=== PATIENT | female | born 1935 | race Two or more races ===

== ENCOUNTER → 2018-06-21 | Day surgery (SDC) | payer MEDICARE ==
[2018-06-18 14:38] LABS: BASOPHILS # (AUTO) 0.1 (0.0-0.1); BASOPHILS % 0.8 % (0.0-1.0); EOSINOPHILS # (AUTO) 0.2 (0.0-0.4); EOSINOPHILS % 1.8 % (0.0-6.0); HEMATOCRIT 46.3 % (34.2-44.1); HEMOGLOBIN 14.9 g/dL (12.0-16.0); LYMPHOCYTES # (AUTO) 3.9 (1.0-3.2); LYMPHOCYTES % 43.7 % (18.0-39.1); MEAN CORPUSCULAR HEMOGLOBIN 27.9 pg (28-32); MEAN CORPUSCULAR HGB CONC 32.2 g/dL (31-35); MEAN CORPUSCULAR VOLUME 86.7 fL (81-99); MONOCYTES # (AUTO) 0.8 (0.2-0.8); MONOCYTES % 9.3 % (4.4-11.3); NEUTROPHILS # (AUTO) 3.9 (2.1-6.9); NEUTROPHILS % 44.2 % (38.7-80.0); PLATELET COUNT 135 x10e3/uL (140-360); RED BLOOD COUNT 5.34 x10e6/uL (3.6-5.1); RED CELL DISTRIBUTION WIDTH 15.2 % (11.7-14.4)
[~2018-06-21] MED LIST: ASPIR 8181 MG PO; GLUCAGON FOR INJ 1 MG VIAL ONE; GLYBURIDE5 MG PO; HYOSCYAMINE SULFATE 0.5 MG/ML INJ ONE; ISOSORBIDE MONO60 MG PO; LASIX20 MG PO; LISINOPRIL40 MG PO; LOVASTATIN20 MG PO; METFORMIN HCL500 MG PO; METOPROLOL SUCC50 MG PO; PANTOPRAZOLE SO40 MG PO; PERMETHRIN60 GM TOP; PROPOFOL IV EMULSION 10 MG/ML 50 ML VIAL ONE; STOOL SOFTENER100 MG PO; ULTRAM 50MG50 MG PO; VITAMIN D35000 UNIT PO
--- OUTSIDE RECORDS SUMMARY | 2018-06-21 08:41 | XMS REPORT ---
Author Author Joel Le Organization [employer] Address Unknown Phone Unavailable Care Team Providers Care Vending Machine Attendant Name Role Phone Joel Le CP Unavailable Allergies No Known Allergies Problems Problem Type Condition Code Onset Dates Condition Status Problem Gastro-esophageal reflux disease without esophagitis K21.9 Active Problem Body mass index (BMI) 29.0-29.9, adult Z68.29 Active Problem Atherosclerotic heart disease of [place] coronary artery without angina pectoris I25.10 Active Problem Upset stomach K30 Active Problem Osteoporosis M81.0 Active Problem Essential (primary) hypertension I10 Active Problem Abdominal gas pain R14.1 Active Problem 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 Problem 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 Active Problem Back pain M54.9 Active Problem Contact dermatitis and other eczema, due to unspecified cause L25.9 Active Problem 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 Problem 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
--- OUTSIDE RECORDS SUMMARY | 2018-06-21 08:41 | XMS REPORT ---
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 Active Problem Upset stomach K30 Active Problem 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 Problem Body mass index (BMI) 29.0-29.9, adult Z68.29 Active Problem Back pain M54.9 Active Problem Abdominal gas pain R14.1 Active Problem Hyperlipemia, mixed E78.2 Active Problem 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 Problem Contact dermatitis and other eczema, due to unspecified cause L25.9 Active Problem 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
--- OUTSIDE RECORDS SUMMARY | 2018-06-21 08:41 | XMS REPORT | Continuity of Care Document ---
Author Author [facility] Interface Address Unknown Phone Unavailable Problems Problem Status Onset Date Classification Date Reported Comments Source BILATERAL HIP PAIN Active 10/25/2017 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 Problem 01/24/2018 Joel Le Vitamin D deficiency Active Problem 01/24/2018 Joel Le Essential hypertension Active Problem 01/24/2018 Joel Le Arthropathy Active Problem 01/24/2018 Joel Le Moderate episode of recurrent major depressive disorder Active Problem 01/24/2018 Joel Le Back pain Active Problem 01/24/2018 Joel Le Upset stomach Active Problem 01/24/2018 Joel Le Osteoporosis Active Problem 01/24/2018 Joel Le Gout Active Problem 01/24/2018 Joel Le Hyperlipemia, mixed Active Problem 01/24/2018 Joel Le Contact dermatitis and other eczema, due to unspecified cause Active Problem 01/24/2018 Joel Le Anxiety disorder, unspecified Active Problem 01/24/2018 Joel Le 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 Active Problem 01/24/2018 Joel Le Type 2 diabetes mellitus with other diabetic kidney complication Active Problem 01/24/2018 Joel Le Gastro-esophageal reflux disease without esophagitis Active Problem 01/24/2018 Joel Le 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 Active Diagnosis 01/24/2018 Joel Le 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 Problem 01/24/2018 Joel Le Urinary tract infection, site not specified Active Diagnosis 12/20/2017 Joel Le Tinea cruris Active Diagnosis 12/06/2017 Joel Le Diabetes mellitus out of control Active Diagnosis 11/17/2016 Joel Le Fatigue Active Diagnosis 12/20/2017 Joel Le Neck muscle spasm Active Diagnosis 08/02/2017 Joel Le Primary insomnia Active Problem 01/24/2018 Joel Le Viral gastroenteritis Active Diagnosis 03/01/2017 Joel Le Type 2 diabetes mellitus with hyperglycemia Active Problem 01/24/2018 Joel Le Hypotensive episode Active Diagnosis 12/06/2017 Joel Le Fracture of unspecified part of neck of right femur, initial encounter for open fracture type IIIA, IIIB, or IIIC Active Diagnosis 12/06/2017 Joel Le Fracture of unspecified part of neck of left femur, initial encounter for open fracture type IIIA, IIIB, or IIIC Active Diagnosis 12/06/2017 Joel Le Status post fractures of both hips Active Diagnosis 01/24/2018 Joel Le Primary osteoarthritis involving multiple joints Active Diagnosis 01/24/2018 Joel Le Falling Active Diagnosis 01/24/2018 Joel Le Localized edema Active Diagnosis 01/24/2018 Joel Le Urinary tract infection Active Diagnosis 08/02/2017 Joel Le Abdominal pain, generalized Active Diagnosis 08/02/2017 Joel Le Hyponatremia Active Diagnosis 08/24/2017 Joel Le Major depression Active Problem 02/22/2016 Joel Le Age-related osteoporosis without current pathological fracture Active Problem 02/22/2016 Joel Le Eczema Active Problem 01/06/2016 Joel Le Encounter for general adult medical examination with abnormal findings Active Diagnosis 09/16/2015 Joel Le Other fatigue Active Diagnosis 01/06/2016 Joel Le Neck pain Active Diagnosis 01/27/2016 Joel Le Abdominal pain Active Diagnosis 01/27/2016 Joel Le Age-related bone loss Active Diagnosis 08/02/2016 Joel Le Croy hyp ht/kd I-IV w hf Active Diagnosis 08/02/2016 Joel Le Edema Active Diagnosis 01/06/2016 Joel Le Medications Medication Details Route Status Patient Instructions Ordering Provider Order Date Source Furosemide 1 tablet Orally Active 20 MG Orally Once a day Lock 01/04/2018 Joel Le Ecotrin Low Strength 1 tablet Orally Active 81 MG Orally Once a day Lock 12/11/2017 Joel Le Tresiba FlexTouch 20 UNITS Subcutaneous Active 100 UNIT/ML Subcutaneous daily Lock 12/09/2017 Joel Le Lisinopril 1 tablet Orally Active 20 MG Orally Once a day Lock 11/27/2017 Joel Le Basaglar KwikPen 20 UNITS Subcutaneous Active 100 UNIT/ML Subcutaneous daily Lock 11/20/2017 Joel Le Prolia as directed Subcutaneous Active 60 MG/ML Subcutaneous EVERY SIX MONTHS Lock 08/19/2017 Joel Le Clonazepam 1 tablet Orally Active 0.5 MG Orally qhs prn Lock 08/12/2017 Joel Le Baclofen 1 tablet with food or milk Orally Active 10 MG Orally Three times a day Lock 07/20/2017 Joel Le Diclofenac Sodium 40 drops to affected area Transdermal Active 1.5 % Transdermal Four times a day Lock 03/12/2017 Joel Le Lidocaine as directed Externally Active 4 % Externally daily Lock 03/12/2017 Joel Le Lidocaine 1 patch to skin remove after 12 hours Externally Active 5 % Externally Once a day Lock 03/12/2017 Joel Le Diclofenac Sodium 2 applications to affected area Transdermal Active 2 % Transdermal QID PRN ON AFFECTED JOINT Lock 03/12/2017 Joel Le Lidocaine 1 patch to skin remove after 12 hours Externally Active 5 % Externally Once a day Lock 03/12/2017 Joel Le Prolia as directed Subcutaneous Active 60 MG/ML Subcutaneous ONCE EVERY SIX MONTHS Lock 03/02/2017 Joel Le Prolia as directed Subcutaneous Active 60 MG/ML Subcutaneous ONCE EVERY SIX MONTHS Lock 02/25/2017 Joel Le Lomotil 1 tablet as needed Orally Active 2.5-0.025 MG Orally Four times a day Lock 02/23/2017 Joel Le Compazine 1 tablet Orally Active 10 MG Orally Three times a day Lock 02/23/2017 Joel Le Lomotil 1 tablet as needed Orally Active 2.5-0.025 MG Orally Four times a day Lock 02/23/2017 Joel Le Zofran ODT 1 tablet on the tongue and allow to dissolve Orally Active 4 MG Orally every 8 hrs Lock 11/19/2016 Joel Le Zofran ODT 1 tablet on the tongue and allow to dissolve Orally Active 4 MG Orally every 8 hrs Lock 11/19/2016 Joel Le Nystatin 1 application to affected area Externally Active 029500 UNIT/GM Externally Twice a day Lock 10/30/2016 Joel Le Metoprolol Succinate ER 1 1/2 tabs Orally Active 50 MG Orally Once a day Lock 10/30/2016 Joel Le Nystatin 1 application to affected area Externally Active 713529 UNIT/GM Externally Twice a day Lock 10/30/2016 Joel Le Metoprolol Succinate ER 1 1/2 tabs Orally Active 50 MG Orally Once a day Lock 10/30/2016 Joel Le Probiotic as directed Orally Active Orally Lock 08/08/2016 Joel Le Gas-X 1 tablet after meals and at bedtime as needed Orally Active 80 MG Orally Four times a day Lock 08/08/2016 Joel Le Gas-X 1 tablet after meals and at bedtime as needed Orally Active 80 MG Orally Four times a day Lock 08/08/2016 Joel Le Probiotic as directed Orally Active Orally Lock 08/08/2016 Joel Le Gas-X 1 tablet after meals and at bedtime as needed Orally Active 80 MG Orally Four times a day Lock 01/28/2016 Joel Le Probiotic as directed Orally Active Orally Lock 01/28/2016 Joel Le Amlodipine Besylate 1 tablet Orally Active 5 MG Orally Once a day Lock 12/21/2015 Joel Le Amlodipine Besylate 1 tablet Orally Active 5 MG Orally Once a day Lock 12/21/2015 Joel Le Gas-X 1 tablet after meals and at bedtime as needed Orally Active 80 MG Orally Four times a day Lock 11/15/2015 Joel Le Probiotic as directed Orally Active Orally Lock 11/15/2015 Joel Le Probiotic as directed Orally Active Orally Lock 11/15/2015 Joel Le Gas-X 1 tablet after meals and at bedtime as needed Orally Active 80 MG Orally Four times a day Lock 11/15/2015 Joel Le Protonix 1 tablet Orally Active 40 MG Orally Once a day Lock 11/15/2015 Joel Le Lidocaine 1 application to affected area as needed Externally Active 5 % Externally Three times a day Lock 09/08/2015 Joel Le Nizoral as directed Externally Active 2 % Externally Lock 09/08/2015 Joel Le Lidocaine 1 application to affected area as needed Externally Active 5 % Externally Three times a day Lock 09/08/2015 Joel Le Nizoral as directed Externally Active 2 % Externally Lock 09/08/2015 Joel Le Xyzal 1 tablet in the evening Orally Active 5 MG Orally Once a day Lock 09/08/2015 Joel Le Lexapro 1 tablet Orally Active 10 mg Orally Once a day Lock 06/25/2015 Joel Le Lexapro 1 tablet Orally Active 10 mg Orally Once a day Lock 06/25/2015 Joel Le Tizanidine HCl 1 tablet as needed Orally Active 4 MG Orally qhs prn Lock 11/22/2014 Joel Le Tizanidine HCl 1 tablet as needed Orally Active 4 MG Orally qhs prn Lock 11/22/2014 Joel Le Elocon 1 application to affected area Externally Active 0.1 % Externally Once a day Lock 09/11/2014 Joel Le Elocon 1 application to affected area Externally Active 0.1 % Externally Once a day Lock 09/11/2014 Joel Sharad Le Xyzal TAKE 1 TABLET BY MOUTH AT BEDTIME NEEDED PO Active 5 MG PO daily PRN Lock Joel Le Protonix TAKE 1 TABLET BY MOUTH EVERY MORNING PO Active 40 mg PO daily Lock Joel Le Lovastatin TAKE 1 TABLET BY MOUTH EVERY DAY NA Active 20 MG Rey Le Levemir INJECT 20 UNITS SUBCUTANEOUSLY EVERY DAY NA Active 100 UNIT/ML Lock Joel Sharad Lock D3-50 TAKE ONE CAPSULE BY MOUTH EVERY WEEK NA Active 02515 UNIT Lock Joel Sharad Le Meclizine HCl TAKE 1 TABLET BY MOUTH 3 TIMES A DAY NEEDED NA Active 12.5 MG Rey Le Furosemide TAKE 1 TABLET BY MOUTH EVERY MORNING NA Active 20 MG Rey Le OneTouch Delica Lancets 33G TEST 3 TIMES A DAY NA Active Lock Joel Sharad Le BD Insulin Syr Ultrafine II USE 1 DAILY WITH INSULIN NA Active 31G X 5/16" 0.5 ML Lock Joel Le Lisinopril TAKE 1 TABLET BY MOUTH EVERY MORNING NA Active 40 MG Rey Le Isosorbide Mononitrate CR TAKE 1 TABLET BY MOUTH DAILY NA Active 60 MG Rey Le Tramadol HCl TAKE 1 TABLET BY MOUTH TWICE A DAY WITH FOOD NA Active 50 MG Rey Le Glucophage XR TAKE 1 TABLET BY MOUTH TWICE A DAY NA Active 500 MG Rey Le Accu-Chek Softclix Lancets USE TO TEST BLOOD GLUCOSE THREE TIMES DAILY NA Active N/A Rey Joel Sharad Le True Metrix Blood Glucose Test USE TO TEST BLOOD GLUCOSE THREE TIMES DAILY NA Active N/A Rey [place] Lock Plavix TAKE 1 TABLET BY MOUTH EVERY DAY NA Active 75 MG Lock Joel Le Nitrostat PLACE ONE TABLET UNDER THE TONGUE DAILY NEEDED NA Active 0.4 MG Rey Le Lorazepam TAKE 1 TABLET BY MOUTH AT BEDTIME NEEDED NA Active 0.5 MG Rey Le Mupirocin APPLY TWICE DAILY NA Active 2 % Rey Le Metoprolol Succinate ER TAKE 1 TABLET BY MOUTH EVERY DAY NA Active 50 MG Lock Joel Le Norvasc TAKE 1 TABLET BY MOUTH EVERY DAY NA Active 5 MG Rey [place] Lock Plavix TAKE 1 TABLET BY MOUTH EVERY DAY NA Active 75 MG Rey Le Metoprolol Succinate ER 1 tab NA Active 50 mg Rey Le Baclofen TAKE 1 TABLET BY MOUTH 3 TIMES A DAY NEEDED. NA Active 10 MG Lock Joel C Lock Plavix TAKE 1 TABLET BY MOUTH EVERY DAY NA Active 75 MG Lock Joel C Lock Glucophage XR TAKE 1 TABLET BY MOUTH TWICE A DAY NA Active 500 MG Lock Joel C Lock Lisinopril TAKE 1 TABLET BY MOUTH EVERY MORNING NA Active 40 MG Lock Joel C Lock Isosorbide Mononitrate CR TAKE 1 TABLET BY MOUTH DAILY NA Active 60 MG Lock Joel C Lock Amlodipine Besylate TAKE HALF A TABLET BY MOUTH TWO TIMES DAILY NA Active 10 MG Lock Joel C Lock Metoprolol Succinate ER TAKE 1 TABLET BY MOUTH EVERY DAY NA Active 50 MG Lock Joel C Lock Lovastatin TAKE 1 TABLET BY MOUTH EVERY DAY NA Active 20 MG Lock Joel C Lock Omeprazole TAKE ONE CAPSULE BY MOUTH EVERY DAY NA Active 20 MG Lock Joel C Lock Lisinopril TAKE 1 TABLET BY MOUTH EVERY MORNING NA Active 40 MG Lock Joel C Lock Meloxicam TAKE 1 TABLET BY MOUTH DAILY NA Active 15 MG Lock Joel C Lock Omeprazole TAKE ONE CAPSULE BY MOUTH EVERY DAY NA No Longer Active 20 MG Lock Joel C Lock Amlodipine Besylate TAKE HALF A TABLET BY MOUTH TWO TIMES DAILY NA No Longer Active 10 MG Lock Joel C Lock Allergies, Adverse Reactions, Alerts Substance Category Reaction Severity Reaction type Status Date Reported Comments Source N.K.D.A. Adverse Reaction Info Not Available Adverse Reaction Active 01/04/2018 Joel C Lock Immunizations Immunization Date Given Site Status Last Updated Comments Source Results Order Name Results Value Reference Range Date Interpretation Comments Source Spine lumbar series DX Spine lumbar series DX EXAM: Spine lumbar series DX HISTORY: - M54.5 Low back pain;G89.29 Other chronic pain COMPARISON: None AP, lateral and oblique views of the lumbar spine. FINDINGS: There is slight retrolisthesis of L2 on L3 and L3 on L4. There is advanced disc space narrowing at L2-3 and moderate to severe disc space narrowing at L1 to and T12-L1. Vertebral body heights are maintained. There is moderate facet arthropathy at the lower lumbar spine. IMPRESSION: Significant degenerative change of the lumbar spine as described above. 02/11/2018 - - Read by: Susannah Adams MD Dictated Date/time: 02/11/18 16:13 Electronically Signed by: Susannah Adams MD 02/11/18 16:16 FINAL REPORT KASSANDRA Lomas Vital Signs Vital Sign Value Date Comments Source Weight 141 01/04/2018 Joel C Lock Height 60 01/04/2018 Joel C Lock Heart Rate 72 01/04/2018 Joel C Lock Diastolic (mm Hg) 85 01/04/2018 Joel C Lock Systolic (mm Hg) 140 01/04/2018 Joel C Lock Weight 143.0 12/11/2017 Joel C Lock Height 60 12/11/2017 Joel C Lock Heart Rate 80 12/11/2017 Joel C Lock Diastolic (mm Hg) 70 12/11/2017 Joel C Lock Systolic (mm Hg) 135 12/11/2017 Joel C Lock Weight 150 11/27/2017 Joel C Lock Height 60 11/27/2017 Joel C Lock Heart Rate 90 11/27/2017 Joel C Lock Diastolic (mm Hg) 60 11/27/2017 Joel C Lock Systolic (mm Hg) 110 11/27/2017 Joel C Lock Weight 148 09/03/2017 Joel C Lock Height 60 09/03/2017 Joel C Lock Heart Rate 68 09/03/2017 Joel C Lock Diastolic (mm Hg) 78 09/03/2017 Joel C Lock Systolic (mm Hg) 120 09/03/2017 Joel C Lock Weight 146.8 08/12/2017 Joel C Lock Height 60 08/12/2017 Joel C Lock Heart Rate 72 08/12/2017 Joel C Lock Diastolic (mm Hg) 80 08/12/2017 Joel C Lock Systolic (mm Hg) 120 08/12/2017 Joel C Lock Weight 148 07/28/2017 Joel C Lock Height 60 07/28/2017 Joel C Lock Heart Rate 60 07/28/2017 Joel C Lock Diastolic (mm Hg) 80 07/28/2017 Joel C Lock Systolic (mm Hg) 125 07/28/2017 Joel C Lock Weight 151 07/20/2017 Joel C Lock Height 60 07/20/2017 Joel C Lock Heart Rate 68 07/20/2017 Joel C Lock Diastolic (mm Hg) 70 07/20/2017 Jeol C Lock Systolic (mm Hg) 120 07/20/2017 Joel C Lock Weight 149.2 03/26/2017 Joel C Lock Height 60 03/26/2017 Joel C Lock Heart Rate 64 03/26/2017 Joel C Lock Diastolic (mm Hg) 80 03/26/2017 Joel C Lock Systolic (mm Hg) 132 03/26/2017 Joel C Lock Weight 150 02/23/2017 Joel C Lock Height 60 02/23/2017 Joel C Lock Heart Rate 68 02/23/2017 Joel C Lock Diastolic (mm Hg) 76 02/23/2017 Joel C Lock Systolic (mm Hg) 136 02/23/2017 Joel C Lock Weight 152 01/19/2017 Joel C Lock Height 60 01/19/2017 Joel C Lock Heart Rate 64 01/19/2017 Joel C Lock Diastolic (mm Hg) 80 01/19/2017 Joel C Lock Systolic (mm Hg) 130 01/19/2017 Joel C Lock Weight 149 11/19/2016 Joel C Lock Height 60 11/19/2016 Joel C Lock Heart Rate 68 11/19/2016 Joel C Lock Diastolic (mm Hg) 70 11/19/2016 Joel C Lock Systolic (mm Hg) 138 11/19/2016 Joel C Lock Weight 149.4 10/30/2016 Joel C Lock Height 60 10/30/2016 Joel C Lock Heart Rate 76 10/30/2016 Joel C Lock Diastolic (mm Hg) 90 10/30/2016 Joel C Lock Systolic (mm Hg) 150 10/30/2016 Joel C Lock Weight 146 08/08/2016 Joel C Lock Height 60 08/08/2016 Joel C Lock Heart Rate 60 08/08/2016 Joel C Lock Diastolic (mm Hg) 80 08/08/2016 Joel C Lock Systolic (mm Hg) 130 08/08/2016 Joel C Lock Weight 151 07/28/2016 Joel C Lock Height 60 07/28/2016 Joel C Lock Heart Rate 64 07/28/2016 Joel C Lock Diastolic (mm Hg) 75 07/28/2016 Joel C Lock Systolic (mm Hg) 130 07/28/2016 Joel C Lock Weight 148.8 01/28/2016 Joel C Lock Height 60 01/28/2016 Joel C Lock Heart Rate 64 01/28/2016 Joel C Lock Diastolic (mm Hg) 80 01/28/2016 Joel C Lock Systolic (mm Hg) 130 01/28/2016 Joel C Lock Weight 149 01/14/2016 Joel C Lock Height 60 01/14/2016 Joel C Lock Heart Rate 68 01/14/2016 Joel C Lock Diastolic (mm Hg) 70 01/14/2016 Joel C Lock Systolic (mm Hg) 120 01/14/2016 Joel C Lock Weight 155 12/21/2015 Joel C Lock Height 60 12/21/2015 Joel C Lock Heart Rate 72 12/21/2015 Joel C Lock Diastolic (mm Hg) 70 12/21/2015 Joel C Lock Systolic (mm Hg) 120 12/21/2015 Joel Le Weight 148 11/15/2015 Joel Le Height 60 11/15/2015 Joel Le Heart Rate 68 11/15/2015 Joel Le Diastolic (mm Hg) 65 11/15/2015 Joel Le Systolic (mm Hg) 110 11/15/2015 Joel Le Weight 149.6 09/06/2015 Joel Le Height 60 09/06/2015 Joel Le Heart Rate 72 09/06/2015 Joel Le Diastolic (mm Hg) 74 09/06/2015 Joel Le Systolic (mm Hg) 130 09/06/2015 Joel Le Encounters Location Location Details Encounter Type Encounter Number Reason For Visit Attending Provider ADM Date DC Date Status Source Joel Le MD Unknown [id number] 02/10/2014 02/10/2014 Joel eL MD Unknown [id number] 02/10/2014 02/10/2014 Joel Le MD Unknown [id number] 02/10/2014 02/10/2014 Joel Le MD Unknown [id number] 02/10/2014 02/10/2014 Joel Le MD Unknown [id number] 02/10/2014 02/10/2014 Joel Le MD Unknown [id number] 02/10/2014 02/10/2014 Joel Le MD Unknown [id number] 02/10/2014 02/10/2014 Joel Le MD Unknown [id number] 02/10/2014 02/10/2014 Joel Le MD Unknown [id number] 02/10/2014 02/10/2014 Joel Le MD Unknown [id number] 02/10/2014 02/10/2014 Joel Le MD Unknown [id number] 02/21/2014 02/21/2014 Joel Le MD Unknown [id number] 02/21/2014 02/21/2014 Joel Le MD Unknown [id number] 02/21/2014 02/21/2014 Joel Le MD Unknown [id number] 02/21/2014 02/21/2014 Joel Le MD Unknown [id number] 02/21/2014 02/21/2014 Joel Le MD Unknown [id number] 02/21/2014 02/21/2014 Joel Le MD Unknown [id number] 02/21/2014 02/21/2014 Joel Le MD Unknown [id number] 02/21/2014 02/21/2014 Joel Le MD Unknown [id number] 02/21/2014 02/21/2014 Joel Le MD Unknown [id number] 02/21/2014 02/21/2014 Joel Le MD CHECK UP [id number] 06/26/2014 06/26/2014 Joel Le MD CHECK UP [id number] 06/26/2014 06/26/2014 Joel Le MD CHECK UP [id number] 06/26/2014 06/26/2014 Joel Le MD CHECK UP [id number] 06/26/2014 06/26/2014 Joel Le MD CHECK UP [id number] 06/26/2014 06/26/2014 Joel Le MD CHECK UP [id number] 06/26/2014 06/26/2014 Joel Le MD CHECK UP [id number] 06/26/2014 06/26/2014 Joel Le MD CHECK UP [id number] 06/26/2014 06/26/2014 Joel Le MD CHECK UP [id number] 06/26/2014 06/26/2014 Joel Le MD CHECK UP [id number] 06/26/2014 06/26/2014 Joel Le MD Unknown [id number] 09/11/2014 09/11/2014 Joel Le MD Unknown [id number] 09/11/2014 09/11/2014 Joel Le MD Unknown [id number] 09/11/2014 09/11/2014 Joel Le MD Unknown [id number] 09/11/2014 09/11/2014 Joel Le MD Unknown [id number] 09/11/2014 09/11/2014 Joel Le MD Unknown [id number] 09/11/2014 09/11/2014 Joel Le MD Unknown [id number] 09/11/2014 09/11/2014 Joel Le MD Unknown [id number] 09/11/2014 09/11/2014 Joel Le MD Unknown [id number] 09/11/2014 09/11/2014 Joel Le MD Unknown [id number] 09/11/2014 09/11/2014 Joel Le MD Unknown [id number] 11/21/2014 11/21/2014 Joel Le MD Unknown [id number] 11/21/2014 11/21/2014 Joel Le MD Unknown [id number] 11/21/2014 11/21/2014 Joel Le MD Unknown [id number] 11/21/2014 11/21/2014 Joel Le MD Unknown [id number] 11/21/2014 11/21/2014 Joel Le MD Unknown [id number] 11/21/2014 11/21/2014 Joel Le MD Unknown [id number] 11/21/2014 11/21/2014 Joel Le MD Unknown [id number] 11/21/2014 11/21/2014 Joel Le MD Unknown [id number] 11/21/2014 11/21/2014 Joel Le MD Unknown [id number] 11/21/2014 11/21/2014 Joel Le MD Unknown [id number] 05/25/2015 05/25/2015 Joel Le MD Unknown [id number] 05/25/2015 05/25/2015 Joel Le MD Unknown [id number] 05/25/2015 05/25/2015 Joel Le MD Unknown [id number] 05/25/2015 05/25/2015 Joel Le MD Unknown [id number] 05/25/2015 05/25/2015 Joel Le MD Unknown [id number] 05/25/2015 05/25/2015 Joel Le MD Unknown [id number] 05/25/2015 05/25/2015 Joel Le MD Unknown [id number] 05/25/2015 05/25/2015 Joel Le MD Unknown [id number] 05/25/2015 05/25/2015 Joel Le MD Unknown [id number] 05/25/2015 05/25/2015 Joel Le MD Unknown [id number] 06/25/2015 06/25/2015 Joel Le MD Unknown [id number] 06/25/2015 06/25/2015 Joel Le MD Unknown [id number] 06/25/2015 06/25/2015 Joel Le MD Unknown [id number] 06/25/2015 06/25/2015 Joel Le MD Unknown [id number] 06/25/2015 06/25/2015 Joel Le MD Unknown [id number] 06/25/2015 06/25/2015 Joel Le MD Unknown [id number] 06/25/2015 06/25/2015 Joel Le MD Unknown [id number] 06/25/2015 06/25/2015 Joel Le MD Unknown [id number] 06/25/2015 06/25/2015 Joel Le MD Unknown [id number] 06/25/2015 06/25/2015 Joel Le MD Unknown [id number] 09/06/2015 09/06/2015 Joel Le MD Unknown [id number] 09/06/2015 09/06/2015 Joel Le MD Unknown [id number] 09/06/2015 09/06/2015 Joel Le MD Unknown [id number] 09/06/2015 09/06/2015 Joel Le MD Unknown [id number] 09/06/2015 09/06/2015 Joel Le MD Unknown [id number] 09/06/2015 09/06/2015 Joel Le MD Unknown [id number] 09/06/2015 09/06/2015 Joel Le MD Unknown [id number] 09/06/2015 09/06/2015 Joel Le MD Unknown [id number] 09/06/2015 09/06/2015 Joel Le MD Unknown [id number] 09/11/2015 09/11/2015 Joel Le MD Unknown [id number] 09/11/2015 09/11/2015 Joel Le MD Unknown [id number] 09/11/2015 09/11/2015 Joel Le MD Unknown [id number] 09/11/2015 09/11/2015 Joel Le MD Unknown [id number] 09/11/2015 09/11/2015 Joel Le MD Unknown [id number] 09/11/2015 09/11/2015 Joel Le MD Unknown [id number] 09/11/2015 09/11/2015 Joel Le MD Unknown [id number] 09/11/2015 09/11/2015 Joel Le MD Unknown [id number] 09/11/2015 09/11/2015 Joel Le MD Unknown [id number] 09/11/2015 09/11/2015 Joel Le MD Unknown [id number] 11/15/2015 11/15/2015 Joel eL MD Unknown [id number] 11/15/2015 11/15/2015 Joel Le MD Unknown [id number] 11/15/2015 11/15/2015 Joel Le MD Unknown [id number] 11/15/2015 11/15/2015 Joel Le MD Unknown [id number] 11/15/2015 11/15/2015 Joel Le MD Unknown [id number] 11/15/2015 11/15/2015 Joel Le MD Unknown [id number] 11/15/2015 11/15/2015 Joel Le MD Unknown [id number] 11/15/2015 11/15/2015 Joel Le MD Unknown [id number] 12/21/2015 12/21/2015 Joel Le MD Unknown [id number] 12/21/2015 12/21/2015 Joel Le MD Unknown [id number] 12/21/2015 12/21/2015 Joel Le MD Unknown [id number] 12/21/2015 12/21/2015 Joel Le MD Unknown [id number] 12/21/2015 12/21/2015 Joel Le MD Unknown [id number] 12/21/2015 12/21/2015 Joel Le MD Unknown [id number] 12/21/2015 12/21/2015 Joel Le MD FUP 1 WEEK [id number] 01/14/2016 01/14/2016 Joel Le MD FUP 1 WEEK [id number] 01/14/2016 01/14/2016 Joel Le MD FUP 1 WEEK [id number] 01/14/2016 01/14/2016 Joel Le MD FUP 1 WEEK [id number] 01/14/2016 01/14/2016 Joel Le MD FUP 1 WEEK [id number] 01/14/2016 01/14/2016 Joel Le MD FUP 1 WEEK [id number] 01/14/2016 01/14/2016 Joel Le MD Follow-Up [id number] 01/28/2016 01/28/2016 Joel Le MD Follow-Up [id number] 01/28/2016 01/28/2016 Joel Le MD Follow-Up [id number] 01/28/2016 01/28/2016 Joel Le MD Follow-Up [id number] 01/28/2016 01/28/2016 Joel Le MD Follow-Up [id number] 01/28/2016 01/28/2016 Joel Le MD rx [id number] 02/21/2016 02/21/2016 Joel Le MD rx [id number] 02/21/2016 02/21/2016 Joel Le MD rx [id number] 02/21/2016 02/21/2016 Joel Le MD rx [id number] 02/21/2016 02/21/2016 Joel Le MD Unknown [id number] 07/28/2016 07/28/2016 Joel Le MD Unknown [id number] 07/28/2016 07/28/2016 Joel Le MD Unknown [id number] 07/28/2016 07/28/2016 Joel Le MD Unknown [id number] 08/08/2016 08/08/2016 Joel Le MD Test results [id number] 08/11/2016 08/11/2016 Joel Le MD Test results [id number] 08/11/2016 08/11/2016 Joel Le Procedures Procedure Code Date Perfomer Comments Source
--- OUTSIDE RECORDS SUMMARY | 2018-06-21 08:42 | XMS REPORT ---
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 Problem Vitamin D deficiency E55.9 Active Problem Essential (primary) hypertension I10 Active Problem Arthropathy M12.9 Active Problem 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 Active Problem Back pain M54.9 Active Problem Upset stomach K30 Active Problem Osteoporosis M81.0 Active Problem Gout M10.9 Active Problem Hyperlipemia, mixed E78.2 Active Problem Contact dermatitis and other eczema, due to unspecified cause L25.9 Active Problem Anxiety disorder, unspecified F41.9 Active Problem 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 [address]-35 60 MG/ML Subcutaneous ONCE EVERY SIX MONTHS Mar 02, 2017 Mar 06, 2017 Active as directed Results No Known Results Summary Purpose eClinicalWorks Submission
--- OUTSIDE RECORDS SUMMARY | 2018-06-21 08:42 | XMS REPORT ---
Author Author Joel Le Organization [employer] Address Unknown Phone Unavailable Care Team Providers Care Bread Wrapper Operator Name Role Phone Joel Le CP Unavailable Allergies, Adverse Reactions, Alerts Substance Reaction Event Type N.K.D.A. Info Not Available Non Drug Allergy Problems Problem Type Condition Code Onset Dates Condition Status Problem Gastro-esophageal reflux disease without esophagitis K21.9 Active Problem Body mass index (BMI) 29.0-29.9, adult Z68.29 Active Problem Atherosclerotic heart disease of [place] coronary artery without angina pectoris I25.10 Active Problem Upset stomach K30 Active Assessment Urinary tract infection, site not specified N39.0 Active Problem Osteoporosis M81.0 Active Assessment Tinea cruris B35.6 Active Problem Essential (primary) hypertension I10 Active Problem Abdominal gas pain R14.1 Active Problem 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 Problem 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 Active Problem Back pain M54.9 Active Assessment Essential (primary) hypertension I10 Active Problem Contact dermatitis and other eczema, due to unspecified cause L25.9 Active Assessment Diabetes mellitus out of control E11.65 Active Assessment Fatigue R53.83 Active Problem 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 Glucophage XR ND 73877644139 500 MG Active TAKE 1 TABLET BY MOUTH TWICE A DAY Furosemide ND 71562257917 20 MG Active TAKE 1 TABLET BY MOUTH EVERY MORNING Probiotic [facility] [address] Orally Aug 08, 2016 Active as directed Lovastatin [facility] 69157329932 20 MG Active TAKE 1 TABLET BY MOUTH EVERY DAY Protonix [facility] 43159296864 40 MG Active TAKE 1 TABLET BY MOUTH EVERY MORNING Gas-X [facility] [address]-65 80 MG Orally Four times a day November 15, 2015 Active 1 tablet after meals and at bedtime as needed Nizoral [facility] [address]-66 2 % Externally September 08, 2015 Active as directed Nitrostat [facility] 35713880575 0.[address] ONE TABLET UNDER THE TONGUE DAILY NEEDED Accu-Chek Softclix Lancets [facility] 90005203607 N/A Active USE TO TEST BLOOD GLUCOSE THREE TIMES DAILY True Metrix Blood Glucose Test [facility] 58865205472 N/A Active USE TO TEST BLOOD GLUCOSE THREE TIMES DAILY D3-50 [facility] 01474249250 41346 UNIT Active TAKE 1 CAPSULE BY MOUTH EVERY WEEK BD Insulin Syr Ultrafine II [facility] 83908121430 31G X 5/16" 0.5 ML Active USE 1 DAILY WITH INSULIN Elocon [facility] [address]-47 0.1 % Externally Once a day September 11, 2014 Active 1 application to affected area Levemir [facility] 28200084280 100 UNIT/ML Active INJECT 20 UNITS SUBCUTANEOUSLY EVERY DAY Probiotic [facility] [address] Orally November 15, 2015 Active as directed Mupirocin [facility] 41679979289 2 % Active APPLY TWICE DAILY Metoprolol Succinate ER [facility] 15097803638 50 MG Inactive TAKE 1 TABLET BY MOUTH EVERY DAY Lisinopril [facility] 73582391444 40 MG Active TAKE 1 TABLET BY MOUTH EVERY MORNING Lidocaine [facility] [address]-48 5 % Externally Three times a day September 08, 2015 Active 1 application to affected area as needed Tizanidine HCl [facility] [address]-98 4 mg Orally qhs prn November 22, 2014 Active 1 tablet as needed Meclizine HCl [facility] 37477722846 12.5 MG Active TAKE 1 TABLET BY MOUTH 3 TIMES A DAY NEEDED OneTouch Delica Lancets 33G [facility] 54932905512 Active TEST 3 TIMES A DAY Nystatin [facility] [address]-63 287604 UNIT/GM Externally Twice a day October 30, 2016 Active 1 application to affected area Plavix [facility] 39270497412 75 MG Active TAKE 1 TABLET BY MOUTH EVERY DAY Metoprolol Succinate ER [facility] [address]-26 50 MG Orally Once a day October 30, 2016 Active 1 1/2 tabs Gas-X [facility] [address]-23 80 MG Orally Four times a day Aug 08, 2016 Active 1 tablet after meals and at bedtime as needed Lorazepam [facility] 17342568227 0.5 MG Active TAKE 1 TABLET BY MOUTH AT BEDTIME NEEDED Isosorbide Mononitrate CR [facility] 27775480993 60 MG Active TAKE 1 TABLET BY MOUTH DAILY Lexapro [facility] [address]-58 10 mg Orally Once a day Jun 25, 2015 Active 1 tablet Vital Signs Date/Time: October 30, 2016 BMI 29.17 Index Weight 149.4 lbs Height 60 in Cardiac Monitoring Heart Rate 76 /min Blood Pressure Diastolic 90 mm Hg Blood Pressure Systolic 150 mm Hg Results Name Result Date Reference Range Unit Abnormality Flag CBC (H/H, RBC, INDICES, WBC, PLT) ----MPV 10.9 33276430 7.5-12.5 fL N ----HEMOGLOBIN 13.7 53296041 11.7-15.5 g/dL N ----HEMATOCRIT 41.6 07186872 35.0-45.0 % N ----MCV 81.2 62401494 80.0-100.0 fL N ----MCH 26.7 71099847 27.0-33.0 pg L ----MCHC 32.9 60625668 32.0-36.0 g/dL N ----RDW 16.5 86155366 11.0-15.0 % H ----PLATELET COUNT 151 77284414 140-400 Thousand/uL N ----WHITE BLOOD CELL COUNT 5.4 99642043 3.8-10.8 Thousand/uL N ----RED BLOOD CELL COUNT 5.12 14907296 3.80-5.10 Million/uL H COMPREHENSIVE METABOLIC PANEL ----GLOBULIN 3.2 54005800 1.9-3.7 g/dL (calc) N ----eGFR 70 20161030 > OR=60 mL/min/1.73m2 N ----eGFR NON-AFR. [place] 60 20161030 > OR=60 mL/min/1.73m2 N ----ALBUMIN 4.3 20161030 3.6-5.1 g/dL N ----SODIUM 134 37401665 135-146 mmol/L L ----PROTEIN, TOTAL 7.5 17384532 6.1-8.1 g/dL N ----BUN/CREATININE RATIO 18 20161030 6-22 (calc) N ----CALCIUM 9.0 20161030 8.6-10.4 mg/dL N ----AST 19 20161030 10-35 U/L N ----GLUCOSE 91 20161030 65-99 mg/dL N ----ALKALINE PHOSPHATASE 80 20161030 33-130 U/L N ----BILIRUBIN, TOTAL 0.4 20161030 0.2-1.2 mg/dL N ----CREATININE 0.89 86312429 0.60-0.88 mg/dL H ----ALBUMIN/GLOBULIN RATIO 1.3 20161030 1.0-2.5 (calc) N ----UREA NITROGEN (BUN) 16 20161030 7-25 mg/dL N ----CARBON DIOXIDE 28 20161030 20-31 mmol/L N ----ALT 17 20161030 6-29 U/L N ----POTASSIUM 4.7 46134589 3.5-5.3 mmol/L N ----CHLORIDE 98 07862456 98-110 mmol/L N URINALYSIS, COMPLETE W/REFLEX TO CULTURE ----BACTERIA NONE SEEN 20161030 NONE SEEN /HPF N ----SQUAMOUS EPITHELIAL CELLS NONE SEEN 20161030 < OR=5 /HPF N ----REFLEXIVE URINE CULTURE NO CULTURE INDICATED 20161030 ----HYALINE CAST NONE SEEN 20161030 NONE SEEN /LPF N ----PROTEIN NEGATIVE 68034659 NEGATIVE N ----OCCULT BLOOD NEGATIVE 32446614 NEGATIVE N ----KETONES NEGATIVE 57672221 NEGATIVE N ----BILIRUBIN NEGATIVE 55514339 NEGATIVE N ----GLUCOSE NEGATIVE 20161030 NEGATIVE N ----LEUKOCYTE ESTERASE NEGATIVE 69634934 NEGATIVE N ----NITRITE NEGATIVE 84562097 NEGATIVE N ----RBC NONE SEEN 20161030 < OR=2 /HPF N ----WBC NONE SEEN 20161030 < OR=5 /HPF N ----COLOR YELLOW 20161030 YELLOW N ----APPEARANCE CLEAR 20161030 CLEAR N ----SPECIFIC GRAVITY 1.010 20161030 1.001-1.035 N ----PH 7.0 20161030 5.0-8.0 N TSH ----TSH 1.22 20161030 0.40-4.50 mIU/L N HEMOGLOBIN A1c ----HEMOGLOBIN A1c 6.0 20161030 <5.7 % of total Hgb H Summary Purpose eClinicalWorks Submission
--- OUTSIDE RECORDS SUMMARY | 2018-06-21 08:42 | XMS REPORT ---
Author Author Joel Le Organization [employer] Address Unknown Phone Unavailable Care Team Providers Care Decorating Instructor Name Role Phone Joel Le CP Unavailable Allergies, Adverse Reactions, Alerts Substance Reaction Event Type N.K.D.A. 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 Problem Vitamin D deficiency E55.9 Active Assessment Arthropathy M12.9 Active Problem Essential (primary) hypertension I10 Active Assessment Vitamin D deficiency E55.9 Active Problem Arthropathy M12.9 Active Problem 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 Active Problem Back pain M54.9 Active Problem Upset stomach K30 Active Problem Osteoporosis M81.0 Active Problem Gout M10.9 Active Problem Hyperlipemia, mixed E78.2 Active Assessment 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 [address]-00 0.1 % Externally Once a day September 11, 2014 Active 1 application to affected area Nystatin [facility] [address]-91 147877 UNIT/GM Externally Twice a day October 30, 2016 Active 1 application to affected area Norvasc [facility] 68197053381 5 MG Active TAKE 1 TABLET BY MOUTH EVERY DAY Protonix [facility] 51339394901 40 MG Active TAKE 1 TABLET BY MOUTH EVERY MORNING OneToellen Reina Lancets 33G [facility] 42547778205 Active TEST 3 TIMES A DAY Lexapro [facility] [address]-73 10 mg Orally Once a day Jun 25, 2015 Active 1 tablet Probiotic [facility] [address] Orally Aug 08, 2016 Active as directed Mupirocin [facility] 60883971712 2 % Active APPLY TWICE DAILY Plavix [facility] 43862132714 75 MG Active TAKE 1 TABLET BY MOUTH EVERY DAY Furosemide [facility] 07419300343 20 MG Active TAKE 1 TABLET BY MOUTH EVERY MORNING Isosorbide Mononitrate CR [facility] 41298752011 60 MG Active TAKE 1 TABLET BY MOUTH DAILY Nitrostat [facility] 39087653759 0.[address] ONE TABLET UNDER THE TONGUE DAILY NEEDED Lorazepam [facility] 39780136359 0.5 MG Active TAKE 1 TABLET BY MOUTH AT BEDTIME NEEDED Accu-Chek Softclix Lancets [facility] 85337735595 N/A Active USE TO TEST BLOOD GLUCOSE THREE TIMES DAILY Lidocaine [facility] [address]-09 5 % Externally Three times a day September 08, 2015 Active 1 application to affected area as needed Metoprolol Succinate ER [facility] [address]-79 50 MG Orally Once a day October 30, 2016 Active 1 1/2 tabs Meclizine HCl [facility] 16257549609 12.5 MG Active TAKE 1 TABLET BY MOUTH 3 TIMES A DAY NEEDED BD Insulin Syr Ultrafine II [facility] 11247513993 31G X 5/16" 0.5 ML Active USE 1 DAILY WITH INSULIN True Metrix Blood Glucose Test [facility] 99830575966 N/A Active USE TO TEST BLOOD GLUCOSE THREE TIMES DAILY Gas-X [facility] [address]-51 80 MG Orally Four times a day Aug 08, 2016 Active 1 tablet after meals and at bedtime as needed Glucophage XR [facility] 27561341712 500 MG Active TAKE 1 TABLET BY MOUTH TWICE A DAY Zofran ODT [facility] [address]-16 4 MG Orally every 8 hrs November 19, 2016 Active 1 tablet on the tongue and allow to dissolve Lovastatin [facility] 22365539852 20 MG Active TAKE 1 TABLET BY MOUTH EVERY DAY Lisinopril [facility] 08624288638 40 MG Active TAKE 1 TABLET BY MOUTH EVERY MORNING Gas-X [facility] [address]-56 80 MG Orally Four times a day November 15, 2015 Active 1 tablet after meals and at bedtime as needed Levemir [facility] 65050144212 100 UNIT/ML Active INJECT 20 UNITS SUBCUTANEOUSLY EVERY DAY Tizanidine HCl [facility] [address]-39 4 mg Orally qhs prn November 22, 2014 Active 1 tablet as needed D3-[address] [facility] 72709568002 44644 UNIT Active TAKE 1 CAPSULE BY MOUTH EVERY WEEK Tramadol HCl [facility] 68307142527 50 MG Active TAKE 1 TABLET BY MOUTH TWICE A DAY WITH FOOD NEEDED. Probiotic [facility] [address] Orally November 15, 2015 Active as directed Nizoral [facility] [address]-78 2 % Externally September 08, 2015 Active as directed Amlodipine Besylate [facility] [address]-82 5 MG Orally Once a day December 21, 2015 Active 1 tablet Vital Signs Date/Time: Jan 19, 2017 BMI 29.68 Index Weight 152 lbs Height 60 in Cardiac Monitoring Heart Rate 64 /min Blood Pressure Diastolic 80 mm Hg Blood Pressure Systolic 130 mm Hg Results No Known Results Summary Purpose eClinicalWorks Submission
--- OUTSIDE RECORDS SUMMARY | 2018-06-21 08:42 | XMS REPORT ---
Author Author Joel Le Organization e[employer] Address Unknown Phone Unavailable Care Team Providers Care Deputy Sheriff Building Guard Name Role Phone Joel Le CP Unavailable [...] I12.9 Active Problem Atherosclerotic heart disease of [place] coronary artery without angina pectoris I25.10 Active Medications Medication Code System Code Instructions Start Date End Date Status Dosage Diclofenac Sodium [facility] [address]-15 2 % Transdermal QID PRN ON AFFECTED JOINT Mar 12, 2017 Jul 10, 2017 Active 2 applications to affected area Lidocaine [facility] [address]-51 4 % Externally daily Mar 12, 2017 Active as directed Results No Known Results Summary Purpose eClinicalWorks Submission
--- OUTSIDE RECORDS SUMMARY | 2018-06-21 08:42 | XMS REPORT ---
Author Author Joel Le Organization e[employer] Address Unknown Phone Unavailable Care Team Providers Care Dynamite Shooter Name Role Phone Joel Le CP Unavailable [...] I12.9 Active Problem Atherosclerotic heart disease of [place] coronary artery without angina pectoris I25.10 Active Medications Medication Code System Code Instructions Start Date End Date Status Dosage Diclofenac Sodium [facility] [address]-35 1.5 % Transdermal Four times a day Mar 12, 2017 Jul 10, 2017 Active 40 [place] [address]-63 4 % Externally daily Mar 12, 2017 In[place] [address]-04 5 % Externally Once a day Mar 12, 2017 Active 1 patch to skin remove after 12 [place] [address]-17 2 % Transdermal QID PRN ON AFFECTED JOINT Mar 12, 2017 Jul 10, 2017 Inactive 2 applications to affected area Results No Known Results Summary Purpose eClinicalWorks Submission
--- OUTSIDE RECORDS SUMMARY | 2018-06-21 08:42 | XMS REPORT ---
Author Author Joel Le Organization [employer] Address Unknown Phone Unavailable Care Team Providers Care Surety Bond Agent Name Role Phone Joel Le CP Unavailable [...] Active Problem Hyperlipemia, mixed E78.2 Active Assessment Osteoporosis M81.0 Active Problem Contact dermatitis and other eczema, [...] I12.9 Active Problem Atherosclerotic heart disease of [place] coronary artery without angina pectoris I25.10 Active Medications Medication Code System Code Instructions Start Date End Date Status Dosage Zofran ODT [facility] [address]-46 4 MG Orally every 8 hrs November 19, 2016 Active 1 tablet on the tongue and allow to dissolve Gas-X [facility] [address]-71 80 MG Orally Four times a day November 15, 2015 Active 1 tablet after meals and at bedtime as needed Tizanidine HCl [facility] [address]-99 4 mg Orally qhs prn November 22, 2014 Active 1 tablet as needed Meclizine HCl [facility] 74869572535 12.5 MG Active TAKE 1 TABLET BY MOUTH 3 TIMES A DAY NEEDED Elocon NDC [address]-91 0.1 % Externally Once a day September 11, 2014 Active 1 application to affected area Lovastatin [facility] 51139737754 20 MG Active TAKE 1 TABLET BY MOUTH EVERY DAY Lidocaine [facility] [address]-18 5 % Externally Three times a day September 08, 2015 Active 1 application to affected area as needed Levemir [facility] 03206943628 100 UNIT/ML Active INJECT 20 UNITS SUBCUTANEOUSLY EVERY DAY Amlodipine Besylate [facility] [address]-35 5 MG Orally Once a day December 21, 2015 Active [address] [facility] 95071331883 20 MG Active TAKE 1 TABLET BY MOUTH EVERY MORNING Plavix [facility] 95366031663 75 MG Active TAKE 1 TABLET BY MOUTH EVERY DAY Lorazepam [facility] 06697216649 0.5 MG Active TAKE 1 TABLET BY MOUTH AT BEDTIME NEEDED True Metrix Blood Glucose Test [facility] 15021435065 N/A Active USE TO TEST BLOOD GLUCOSE THREE TIMES DAILY Accu-Chek Softclix Lancets [facility] 30754293788 N/A Active USE TO TEST BLOOD GLUCOSE THREE TIMES DAILY Lisinopril [facility] 63974324198 40 MG Active TAKE 1 TABLET BY MOUTH EVERY MORNING D3-50 [facility] 21167125067 33172 UNIT Active TAKE 1 CAPSULE BY MOUTH EVERY WEEK Diclofenac Sodium [facility] [address]-66 1.5 % Transdermal Four times a day Mar 12, 2017 Jul 10, 2017 Active 40 drops to affected area Nizoral [facility] [address]-64 2 % Externally September 08, 2015 Active as directed Probiotic [facility] 56322-[address]69 Orally November 15, 2015 Active as directed Diclofenac Sodium [facility] [address]-21 2 % Transdermal QID PRN ON AFFECTED JOINT Mar 12, 2017 Jul 10, 2017 Active 2 applications to affected area Lidocaine [facility] [address]-03 5 % Externally Once a day Mar 12, 2017 Active 1 patch to skin remove after [address] [facility] 48487598492 5 MG Active TAKE 1 TABLET BY MOUTH EVERY DAY BD Insulin Syr Ultrafine II [facility] 10636995462 31G X 5/16" 0.5 ML Active USE 1 DAILY WITH INSULIN Nystatin [facility] [address]-13 028952 UNIT/GM Externally Twice a day October 30, 2016 Active 1 application to affected area Mupirocin [facility] 48319338320 2 % Active APPLY TWICE DAILY Isosorbide Mononitrate CR [facility] 39302560268 60 MG Active TAKE 1 TABLET BY MOUTH DAILY Compazine ND 0 10 MG Orally Three times a day Feb 23, 2017 [address] [facility] [address]-89 10 mg Orally Once a day Jun 25, 2015 Active [address] [facility] [address]-93 4 % Externally daily Mar 12, 2017 Active as directed Lomotil [facility] [address]-51 2.5-0.025 MG Orally Four times a day Feb 23, 2017 Active 1 tablet as needed Nitrostat [facility] 32715110071 0.[address] ONE TABLET UNDER THE TONGUE DAILY NEEDED Protonix [facility] 91235544174 40 MG Active TAKE 1 TABLET BY MOUTH EVERY MORNING Xyzal [facility] 98157940069 5 MG Active TAKE 1 TABLET BY MOUTH AT BEDTIME NEEDED Metoprolol Succinate ER [facility] [address]-20 50 MG Orally Once a day October 30, 2016 Active 1 1/[address] [facility] 78825631682 500 MG Active TAKE 1 TABLET BY MOUTH TWICE A DAY Gas-X [facility] [address]-18 80 MG Orally Four times a day Aug 08, 2016 Active 1 tablet after meals and at bedtime as needed Tramadol HCl [facility] 78843955872 50 MG Active TAKE 1 TABLET BY MOUTH TWICE A DAY WITH FOOD NEEDED. OneTouch Delica Lancets 33G [facility] 58898205105 Active TEST 3 TIMES A DAY Probiotic [facility] 53641-[address]13 Orally Aug 08, 2016 Active as directed Vital Signs Date/Time: Mar 26, 2017 BMI 29.14 Index Weight 149.2 lbs Height 60 in Cardiac Monitoring Heart Rate 64 /min Blood Pressure Diastolic 80 mm Hg Blood Pressure Systolic 132 mm Hg Results No Known Results Summary Purpose [employer] Submission
--- OUTSIDE RECORDS SUMMARY | 2018-06-21 08:42 | XMS REPORT ---
Author Author Joel Le Organization [employer] Address Unknown Phone Unavailable Care Team Providers Care Logistics Program Manager Name Role Phone Joel Le CP Unavailable [...] I12.9 Active Problem Atherosclerotic heart disease of [place] coronary artery without angina pectoris I25.10 Active Medications Medication Code System Code Instructions Start Date End Date Status Dosage Xyzal [facility] 30676706324 5 MG PO daily PRN Active TAKE 1 TABLET BY MOUTH AT BEDTIME NEEDED Protonix [facility] 90727607967 40 MG PO daily Active TAKE 1 TABLET BY MOUTH EVERY MORNING Results No Known Results Summary Purpose [employer] Submission
--- OUTSIDE RECORDS SUMMARY | 2018-06-21 08:42 | XMS REPORT ---
Author Author Joel Le Organization [employer] Address Unknown Phone Unavailable Care Team Providers Care Boat Outfitting Supervisor Name Role Phone Joel Le CP Unavailable [...] I12.9 Active Problem Atherosclerotic heart disease of [place] coronary artery without angina pectoris I25.10 Active Medications Medication Code System Code Instructions Start Date End Date Status Dosage Protonix [facility] 86606833204 40 MG PO daily Active TAKE 1 TABLET BY MOUTH EVERY MORNING Tizanidine HCl [facility] [address]-57 4 MG Orally qhs prn November 22, 2014 October 07, 2017 Active 1 tablet as needed Xyzal [facility] 42220151849 5 MG PO daily PRN Active TAKE 1 TABLET BY MOUTH AT BEDTIME NEEDED Results No Known Results Summary Purpose [employer]Works Submission
--- OUTSIDE RECORDS SUMMARY | 2018-06-21 08:42 | XMS REPORT ---
Author Author Joel Le Organization [employer] Address Unknown Phone Unavailable Care Team Providers Care Drying Can Worker Name Role Phone Joel Le CP Unavailable Allergies, Adverse Reactions, Alerts Substance Reaction Event Type N.K.D.A. 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 Active Problem Essential (primary) hypertension I10 Active Problem Upset stomach K30 Active Problem Hyperlipemia, mixed E78.2 Active Problem 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 Problem Contact dermatitis and other eczema, due to unspecified cause L25.9 Active Problem Gout M10.9 Active Problem Body mass index (BMI) 29.0-29.9, adult Z68.29 Active Problem 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 Problem 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 Problem Gastro-esophageal reflux disease without esophagitis K21.9 Active Problem Anxiety disorder, unspecified F41.9 Active Problem Atherosclerotic heart disease of [place] coronary artery without angina pectoris I25.10 Active Medications Medication Code System Code Instructions Start Date End Date Status Dosage Nizoral [facility] 13722992600 2 % Externally September 08, 2015 Active as directed Meclizine HCl ND 01015867699 12.5 MG Active TAKE 1 TABLET BY MOUTH 3 TIMES A DAY NEEDED Metoprolol Succinate ER ND 92758796937 50 MG Orally Once a day October 30, 2016 Active 1 1/2 tabs Elocon ND 07556836274 0.1 % Externally Once a day September 11, 2014 Active 1 application to affected area Levemir [facility] 03351713188 100 UNIT/ML Active INJECT 20 UNITS SUBCUTANEOUSLY EVERY DAY Clonazepam [facility] 78311720604 0.5 MG Orally qhs prn Aug 12, 2017 Active 1 tablet Furosemide [facility] 67632232824 20 MG Active TAKE 1 TABLET BY MOUTH EVERY MORNING Probiotic [facility] 10166932181 Orally November 15, 2015 Active as directed Isosorbide Mononitrate CR [facility] 74845568692 60 MG Active TAKE 1 TABLET BY MOUTH DAILY Lorazepam [facility] 92404352539 0.5 MG Active TAKE 1 TABLET BY MOUTH AT BEDTIME NEEDED BD Insulin Syr Ultrafine II [facility] 25219707802 31G X 5/16" 0.5 ML Active USE 1 DAILY WITH INSULIN Lisinopril [facility] 80839841858 40 MG Active TAKE 1 TABLET BY MOUTH EVERY MORNING Protonix [facility] 20064000231 40 mg PO daily Active TAKE 1 TABLET BY MOUTH EVERY MORNING Xyzal [facility] 03337943728 5 MG PO daily PRN Active TAKE 1 TABLET BY MOUTH AT BEDTIME NEEDED Gas-X [facility] 88721835673 80 MG Orally Four times a day November 15, 2015 Active 1 tablet after meals and at bedtime as needed Amlodipine Besylate [facility] 22092535408 5 MG Orally Once a day December 21, 2015 Active 1 tablet D3-50 [facility] 86398677114 23065 UNIT Active TAKE 1 CAPSULE BY MOUTH EVERY WEEK Lovastatin [facility] 82508944070 20 MG Active TAKE 1 TABLET BY MOUTH EVERY DAY Mupirocin [facility] 62622118750 2 % Active APPLY TWICE DAILY Nystatin [facility] 86130625576 361068 UNIT/GM Externally Twice a day October 30, 2016 Active 1 application to affected area Accu-Chek Softclix Lancets [facility] 93357886607 N/A Active USE TO TEST BLOOD GLUCOSE THREE TIMES DAILY Nitrostat [facility] 51923076661 0.[address] ONE TABLET UNDER THE TONGUE DAILY NEEDED Plavix [facility] 87548404739 75 MG Active TAKE 1 TABLET BY MOUTH EVERY DAY Glucophage XR [facility] 93576047358 500 MG Active TAKE 1 TABLET BY MOUTH TWICE A DAY True Metrix Blood Glucose Test [facility] 79101344661 N/A Active USE TO TEST BLOOD GLUCOSE THREE TIMES DAILY Kusum Reina Lancets 33G [facility] 53495882870 Active TEST 3 TIMES A DAY Tizanidine HCl [facility] 49233284198 4 MG Orally qhs prn November 22, 2014 October 07, 2017 Active 1 tablet as needed Vital Signs Date/Time: September 03, 2017 BMI 28.90 Index Weight 148 lbs Height 60 in Cardiac Monitoring Heart Rate 68 /min Blood Pressure Diastolic 78 mm Hg Blood Pressure Systolic 120 mm Hg Results Name Result Date Reference Range Unit Abnormality Flag CULTURE, URINE, ROUTINE ----RESULT: SEE NOTE [id number] ----ISOLATE 1: SEE NOTE [id number] A ----SOURCE: URINE [id number] ----STATUS: FINAL [id number] URINALYSIS, COMPLETE W/REFLEX TO CULTURE ----BACTERIA NONE SEEN [id number] NONE SEEN /HPF N ----SQUAMOUS EPITHELIAL CELLS 0-5 [id number] < OR=5 /HPF ----REFLEXIVE URINE CULTURE CULTURE INDICATED - RESULTS TO FOLLOW [id number] ----HYALINE CAST NONE SEEN 20170903 NONE SEEN /LPF N ----PROTEIN NEGATIVE 20170903 NEGATIVE N ----OCCULT BLOOD NEGATIVE 20170903 NEGATIVE N ----KETONES NEGATIVE 20170903 NEGATIVE N ----BILIRUBIN NEGATIVE 20170903 NEGATIVE N ----GLUCOSE NEGATIVE 20170903 NEGATIVE N ----LEUKOCYTE ESTERASE TRACE 20170903 NEGATIVE A ----NITRITE NEGATIVE 20170903 NEGATIVE N ----RBC NONE SEEN 20170903 < OR=2 /HPF N ----WBC 0-5 20170903 < OR=5 /HPF N ----COLOR YELLOW 20170903 YELLOW N ----APPEARANCE CLEAR 20170903 CLEAR N ----SPECIFIC GRAVITY 1.008 20170903 1.001-1.035 N ----PH 6.0 20170903 5.0-8.0 N COMPREHENSIVE METABOLIC PANEL ----SODIUM 126 20170903 135-146 mmol/L L ----BUN/CREATININE RATIO 12 20170903 6-22 (calc) N ----CHLORIDE 90 20170903 98-110 mmol/L L ----POTASSIUM 4.7 20170903 3.5-5.3 mmol/L N ----CALCIUM 9.4 20170903 8.6-10.4 mg/dL N ----PROTEIN, TOTAL 7.4 20170903 6.1-8.1 g/dL N ----CARBON DIOXIDE 31 20170903 20-31 mmol/L N ----ALBUMIN/GLOBULIN RATIO 1.3 20170903 1.0-2.5 (calc) N ----eGFR NON-AFR. [place] 58 [id number] > OR=60 mL/min/1.73m2 L ----BILIRUBIN, TOTAL 0.6 20170903 0.2-1.2 mg/dL N ----eGFR 68 20170903 > OR=60 mL/min/1.73m2 N ----UREA NITROGEN (BUN) 11 20170903 7-25 mg/dL N ----ALBUMIN 4.2 20170903 3.6-5.1 g/dL N ----GLOBULIN 3.2 20170903 1.9-3.7 g/dL (calc) N ----CREATININE 0.91 20170903 0.60-0.88 mg/dL H ----ALT 14 20170903 6-29 U/L N ----GLUCOSE 69 20170903 65-99 mg/dL N ----ALKALINE PHOSPHATASE 51 20170903 33-130 U/L N ----AST 22 20170903 10-35 U/L N Summary Purpose eClinicalWorks Submission
--- OUTSIDE RECORDS SUMMARY | 2018-06-21 08:42 | XMS REPORT ---
Author Author Joel Le Organization [employer] Address Unknown Phone Unavailable Care Team Providers Care Courtesy Car Driver Name Role Phone Joel Le CP Unavailable Allergies, Adverse Reactions, Alerts Substance Reaction Event Type N.K.D.A. 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 Active Problem Back pain M54.9 Active Assessment Upset stomach K30 Active Problem Contact dermatitis and other eczema, [...] Instructions Start Date End Date Status Dosage Lovastatin [facility] 73245545932 20 MG Active TAKE 1 TABLET BY MOUTH EVERY DAY Levemir [facility] 42565010503 100 UNIT/ML Active INJECT 20 UNITS SUBCUTANEOUSLY EVERY DAY Probiotic [facility] 49757-57[address] Orally Aug 08, 2016 Active as directed Gas-X [facility] [address]-72 80 MG Orally Four times a day Aug 08, 2016 Active 1 tablet after meals and at bedtime as needed Elocon [facility] [address]-98 0.1 % Externally Once a day September 11, 2014 Active 1 application to affected area Gas-X [facility] [address]-66 80 MG Orally Four times a day November 15, 2015 Active 1 tablet after meals and at bedtime as needed Probiotic [facility] 74450-72463 Orally November 15, 2015 Active as directed D3-50 [facility] 81857234123 71442 UNIT Active TAKE 1 CAPSULE BY MOUTH EVERY WEEK Lexapro [facility] [address]-54 10 mg Orally Once a day Jun 25, 2015 Active 1 tablet Zofran ODT [facility] [address]-97 4 MG Orally every 8 hrs November 19, 2016 Active 1 tablet on the tongue and allow to dissolve Meclizine HCl [facility] 69436669224 12.5 MG Active TAKE 1 TABLET BY MOUTH 3 TIMES A DAY NEEDED Furosemide [facility] 76678507187 20 MG Active TAKE 1 TABLET BY MOUTH EVERY MORNING Amlodipine Besylate [facility] [address]-15 5 MG Orally Once a day December 21, 2015 Active 1 tablet Nizoral [facility] [address]-66 2 % Externally September 08, 2015 Active as directed OneTouch Delica Lancets 33G [facility] 02899677880 Active TEST 3 TIMES A DAY BD Insulin Syr Ultrafine II [facility] 05098544592 31G X 5/16" 0.5 ML Active USE 1 DAILY WITH INSULIN Lisinopril [facility] 01442385712 40 MG Active TAKE 1 TABLET BY MOUTH EVERY MORNING Isosorbide Mononitrate CR [facility] 95557639924 60 MG Active TAKE 1 TABLET BY MOUTH DAILY Tramadol HCl [facility] 50024906823 50 MG Active TAKE 1 TABLET BY MOUTH TWICE A DAY WITH FOOD NEEDED. Glucophage XR [facility] 11455541465 500 MG Active TAKE 1 TABLET BY MOUTH TWICE A DAY Accu-Chek Softclix Lancets [facility] 56636437488 N/A Active USE TO TEST BLOOD GLUCOSE THREE TIMES DAILY True Metrix Blood Glucose Test [facility] 37136362520 N/A Active USE TO TEST BLOOD GLUCOSE THREE TIMES DAILY Plavix [facility] 41956795207 75 MG Active TAKE 1 TABLET BY MOUTH EVERY DAY Protonix [facility] 48734359553 40 MG Active TAKE 1 TABLET BY MOUTH EVERY MORNING Nitrostat [facility] 38100046584 0.[address] ONE TABLET UNDER THE TONGUE DAILY NEEDED Nystatin [facility] [address]-52 054991 UNIT/GM Externally Twice a day October 30, 2016 Active 1 application to affected area Lorazepam [facility] 42913892307 0.5 MG Active TAKE 1 TABLET BY MOUTH AT BEDTIME NEEDED Mupirocin [facility] 43426697706 2 % Active APPLY TWICE DAILY Lidocaine [facility] [address]-25 5 % Externally Three times a day September 08, 2015 Active 1 application to affected area as needed Metoprolol Succinate ER [facility] [address]-50 50 MG Orally Once a day October 30, 2016 Active 1 1/2 tabs Tizanidine HCl [facility] [address]-42 4 mg Orally qhs prn November 22, 2014 Active 1 tablet as needed Vital Signs Date/Time: November 19, 2016 BMI 29.10 Index Weight 149 lbs Height 60 in Cardiac Monitoring Heart Rate 68 /min Blood Pressure Diastolic 70 mm Hg Blood Pressure Systolic 138 mm Hg Results No Known Results Summary Purpose eClinicalWorks Submission
--- OUTSIDE RECORDS SUMMARY | 2018-06-21 08:42 | XMS REPORT ---
Author Author Joel Le Organization e[employer] Address Unknown Phone Unavailable Care Team Providers Care Glove Stitcher Name Role Phone Joel Le CP Unavailable [...] I12.9 Active Problem Atherosclerotic heart disease of [place] coronary artery without angina pectoris I25.10 Active Medications Medication Code System Code Instructions Start Date End Date Status Dosage Prolia [facility] [address]-82 60 MG/ML Subcutaneous ONCE EVERY SIX MONTHS Feb 25, 2017 Mar 01, 2017 Active as directed Results No Known Results Summary Purpose eClinicalWorks Submission
--- OUTSIDE RECORDS SUMMARY | 2018-06-21 08:42 | XMS REPORT ---
Author Author Joel Le Organization [employer] Address Unknown Phone Unavailable Care Team Providers Care Foreman Or Supervisor And Operator Name Role Phone Joel Le CP [...] Active Problem Hyperlipemia, mixed E78.2 Active Assessment Viral gastroenteritis A08.4 Active Problem Contact dermatitis and other eczema, [...] I12.9 Active Problem Atherosclerotic heart disease of [place] coronary artery without angina pectoris I25.10 Active Medications Medication Code System Code Instructions Start Date End Date Status Dosage OneTouch Delica Lancets 33G [facility] 37339258862 Active TEST 3 TIMES A DAY Probiotic [facility] [address] Orally Aug 08, 2016 Active as directed Tramadol HCl [facility] 16172772980 50 MG Active TAKE 1 TABLET BY MOUTH TWICE A DAY WITH FOOD NEEDED. Amlodipine Besylate [facility] [address]-00 5 MG Orally Once a day December 21, 2015 Active 1 tablet D3-50 [facility] 73592121613 59364 UNIT Active TAKE 1 CAPSULE BY MOUTH EVERY WEEK Isosorbide Mononitrate CR [facility] 39075853620 60 MG Active TAKE 1 TABLET BY MOUTH DAILY Glucophage XR [facility] 54922565890 500 MG Active TAKE 1 TABLET BY MOUTH TWICE A DAY Nitrostat [facility] 28152760997 0.[address] ONE TABLET UNDER THE TONGUE DAILY NEEDED Lomotil [facility] [address]-47 2.5-0.025 MG Orally Four times a day Feb 23, 2017 Active 1 tablet as needed Lovastatin [facility] 94456010068 20 MG Active TAKE 1 TABLET BY MOUTH EVERY DAY Lidocaine [facility] [address]-53 5 % Externally Three times a day September 08, 2015 Active 1 application to affected area as needed Protonix [facility] 23303136214 40 MG Active TAKE 1 TABLET BY MOUTH EVERY MORNING Norvasc [facility] 93333956834 5 MG Active TAKE 1 TABLET BY MOUTH EVERY DAY Zofran ODT [facility] [address]-00 4 MG Orally every 8 hrs November 19, 2016 Active 1 tablet on the tongue and allow to dissolve Meclizine HCl [facility] 15727434267 12.5 MG Active TAKE 1 TABLET BY MOUTH 3 TIMES A DAY NEEDED Lorazepam [facility] 06643761766 0.5 MG Active TAKE 1 TABLET BY MOUTH AT BEDTIME NEEDED Lexapro [facility] [address]-75 10 mg Orally Once a day Jun 25, 2015 Active 1 tablet Mupirocin [facility] 47129391580 2 % Active APPLY TWICE DAILY Furosemide [facility] 17336365051 20 MG Active TAKE 1 TABLET BY MOUTH EVERY MORNING Metoprolol Succinate ER [facility] [address]-59 50 MG Orally Once a day October 30, 2016 Active 1 1/2 tabs Plavix [facility] 17363967878 75 MG Active TAKE 1 TABLET BY MOUTH EVERY DAY Gas-X [facility] [address]-97 80 MG Orally Four times a day November 15, 2015 Active 1 tablet after meals and at bedtime as needed Compazine ND 0 10 MG Orally Three times a day Feb 23, 2017 Active 1 tablet Nystatin [facility] [address]-64 049866 UNIT/GM Externally Twice a day October 30, 2016 Active 1 application to affected area Probiotic [facility] 8[address] Orally November 15, 2015 Active as directed Gas-X [facility] [address]-92 80 MG Orally Four times a day Aug 08, 2016 Active 1 tablet after meals and at bedtime as needed Elocon [facility] [address]-16 0.1 % Externally Once a day September 11, 2014 Active 1 application to affected area Nibraulioral [facility] [address]-96 2 % Externally September 08, 2015 Active as directed BD Insulin Syr Ultrafine II [facility] 72731126188 31G X 5/16" 0.5 ML Active USE 1 DAILY WITH INSULIN Xyzal [facility] 12501504939 5 MG Active TAKE 1 TABLET BY MOUTH AT BEDTIME NEEDED Tizanidine HCl [facility] [address]-53 4 mg Orally qhs prn November 22, 2014 Active 1 tablet as needed Levemir [facility] 11169613087 100 UNIT/ML Active INJECT 20 UNITS SUBCUTANEOUSLY EVERY DAY Accu-Chek Softclix Lancets [facility] 61860157533 N/A Active USE TO TEST BLOOD GLUCOSE THREE TIMES DAILY True Metrix Blood Glucose Test [facility] 81928094275 N/A Active USE TO TEST BLOOD GLUCOSE THREE TIMES DAILY Lisinopril [facility] 60855713323 40 MG Active TAKE 1 TABLET BY MOUTH EVERY MORNING Vital Signs Date/Time: Feb 23, 2017 BMI 29.29 Index Weight 150 lbs Height 60 in Cardiac Monitoring Heart Rate 68 /min Blood Pressure Diastolic 76 mm Hg Blood Pressure Systolic 136 mm Hg Results No Known Results Summary Purpose [employer] Submission
--- OUTSIDE RECORDS SUMMARY | 2018-06-21 08:42 | XMS REPORT ---
Author Author Joel Le Organization [employer] Address Unknown Phone Unavailable Care Team Providers Care Rn Research Name Role Phone Joel Le CP Unavailable Allergies, Adverse Reactions, Alerts Substance Reaction Event Type N.K.D.A. 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 Problem Gastro-esophageal reflux disease without esophagitis K21.9 Active Problem 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 Problem Atherosclerotic heart disease of [place] coronary artery without angina pectoris I25.10 Active Medications Medication Code System Code Instructions Start Date End Date Status Dosage Lomotil ND 84563670267 2.5-0.025 MG Orally Four times a day Feb 23, 2017 Active 1 tablet as needed BD Insulin Syr Ultrafine II ND 98388476925 31G X 5/16" 0.5 ML Active USE 1 DAILY WITH INSULIN Lisinopril ND 36042198322 40 MG Active TAKE 1 TABLET BY MOUTH EVERY MORNING Gas-X [facility] 70958854796 80 MG Orally Four times a day Aug 08, 2016 Active 1 tablet after meals and at bedtime as needed Lexapro ND 42076202556 10 mg Orally Once a day Jun 25, 2015 Active 1 tablet Lidocaine [facility] [address]-96 4 % Externally daily Mar 12, 2017 Active as directed Baclofen ND 30441715439 10 MG Orally Three times a day Jul 20, 2017 August 19, 2017 Active 1 tablet with food or milk Tramadol HCl [facility] 92367300421 50 MG Active TAKE 1 TABLET BY MOUTH TWICE A DAY WITH FOOD Levemir [facility] 14783034513 100 UNIT/ML Active INJECT 20 UNITS SUBCUTANEOUSLY EVERY DAY Nitrostat [facility] 41675085682 0.[address] ONE TABLET UNDER THE TONGUE DAILY NEEDED Compazine NDC 0 10 MG Orally Three times a day Feb 23, 2017 Active 1 tablet Lidocaine [facility] 90215231170 5 % Externally Three times a day September 08, 2015 Active 1 application to affected area as needed Lidocaine [facility] 88833441304 5 % Externally Once a day Mar 12, 2017 Active 1 patch to skin remove after 12 hours Tizanidine HCl [facility] 86460992374 4 MG Orally qhs prn November 22, 2014 October 07, 2017 Active 1 tablet as needed Lovastatin [facility] 90345265080 20 MG Active TAKE 1 TABLET BY MOUTH EVERY DAY D3-50 [facility] 89984166954 51856 UNIT Active TAKE 1 CAPSULE BY MOUTH EVERY WEEK OneTouch Delica Lancets 33G [facility] 67822935730 Active TEST 3 TIMES A DAY Accu-Chek Softclix Lancets [facility] 98203398875 N/A Active USE TO TEST BLOOD GLUCOSE THREE TIMES DAILY True Metrix Blood Glucose Test [facility] 34045121015 N/A Active USE TO TEST BLOOD GLUCOSE THREE TIMES DAILY Nystatin [facility] 49497676019 564657 UNIT/GM Externally Twice a day October 30, 2016 Active 1 application to affected area Probiotic [facility] 61081680072 Orally November 15, 2015 Active as directed Meclizine HCl [facility] 28147621472 12.5 MG Active TAKE 1 TABLET BY MOUTH 3 TIMES A DAY NEEDED Xyzal [facility] 57420735203 5 MG PO daily PRN Active TAKE 1 TABLET BY MOUTH AT BEDTIME NEEDED Lorazepam ND 91681997186 0.5 MG Active TAKE 1 TABLET BY MOUTH AT BEDTIME NEEDED Probiotic [facility] 45086998880 Orally Aug 08, 2016 Active as directed Furosemide [facility] 93192124342 20 MG Active TAKE 1 TABLET BY MOUTH EVERY MORNING Gas-X [facility] 85560987586 80 MG Orally Four times a day November 15, 2015 Active 1 tablet after meals and at bedtime as needed Plavix [facility] 01780543633 75 MG Active TAKE 1 TABLET BY MOUTH EVERY DAY Mupirocin [facility] 89469529368 2 % Active APPLY TWICE DAILY Amlodipine Besylate ND 51024477750 5 MG Orally Once a day December 21, 2015 Active 1 tablet Glucophage XR [facility] 03582204211 500 MG Active TAKE 1 TABLET BY MOUTH TWICE A DAY Metoprolol Succinate ER [facility] 27403576355 50 MG Orally Once a day October 30, 2016 Active 1 1/2 tabs Elocon [facility] 98035193849 0.1 % Externally Once a day September 11, 2014 Active 1 application to affected area Nizoral [facility] 99329560879 2 % Externally September 08, 2015 Active as directed Isosorbide Mononitrate CR [facility] 74561364023 60 MG Active TAKE 1 TABLET BY MOUTH DAILY Zofran ODT [facility] 16439050969 4 MG Orally every 8 hrs November 19, 2016 Active 1 tablet on the tongue and allow to dissolve Norvasc [facility] 56767805856 5 MG Active TAKE 1 TABLET BY MOUTH EVERY DAY Protonix [facility] 20175167451 40 MG PO daily Active TAKE 1 TABLET BY MOUTH EVERY MORNING Vital Signs Date/Time: Jul 20, 2017 BMI 29.49 Index Weight 151 lbs Height 60 in Cardiac Monitoring Heart Rate 68 /min Blood Pressure Diastolic 70 mm Hg Blood Pressure Systolic 120 mm Hg Results No Known Results Summary Purpose [employer] Submission
--- OUTSIDE RECORDS SUMMARY | 2018-06-21 08:43 | XMS REPORT ---
Author Author Joel Le Organization [employer] Address Unknown Phone Unavailable Care Team Providers Care Hydrographic Engineer Name Role Phone Joel Le CP Unavailable Allergies, Adverse Reactions, Alerts Substance Reaction Event Type N.K.D.A. 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 Problem Abdominal gas pain R14.1 Active Assessment Falling R29.6 Active Problem Back pain M54.9 Active Assessment Localized edema R60.0 Active Problem 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 Active Problem Upset stomach K30 Active Problem Osteoporosis M81.0 Active Problem Falling R29.6 Active Problem Type 2 diabetes mellitus 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 Active Problem Hyperlipemia, mixed E78.2 Active Problem Gout M10.9 Active Problem Primary osteoarthritis involving multiple joints M15.0 Active Problem Contact dermatitis and other eczema, due to unspecified cause L25.9 Active Problem Arthropathy M12.9 Active Problem Essential (primary) hypertension I10 Active Problem Primary insomnia F51.01 Active Problem Vitamin D deficiency E55.9 Active Problem Anxiety disorder, unspecified F41.9 Active Problem Body mass index (BMI) 29.0-29.9, adult Z68.29 Active Problem 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 Problem 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 Problem Atherosclerotic heart disease of [place] coronary artery without angina pectoris I25.10 Active Problem 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 Problem 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 Problem Gastro-esophageal reflux disease without esophagitis K21.9 Active Medications Medication Code System Code Instructions Start Date End Date Status Dosage Meclizine HCl [facility] 66901554027 12.5 MG Active TAKE 1 TABLET BY MOUTH 3 TIMES A DAY NEEDED Mupirocin ND 78629485544 2 % Active APPLY TWICE DAILY Ecotrin Low Strength [facility] 60175725732 81 MG Orally Once a day December 11, 2017 January 10, 2018 Active 1 tablet Nystatin [facility] 58435936095 801650 UNIT/GM Externally Twice a day October 30, 2016 Active 1 application to affected area Clonazepam [facility] 64300321062 0.5 MG Orally qhs prn Aug 12, 2017 Active 1 tablet Glucophage XR [facility] 95810794722 500 MG Active TAKE 1 TABLET BY MOUTH TWICE A DAY Protonix [facility] 76475442982 40 mg PO daily Active TAKE 1 TABLET BY MOUTH EVERY MORNING Nizoral [facility] 70862483692 2 % Externally September 08, 2015 Active as directed Lisinopril [facility] 68149844829 20 MG Orally Once a day November 27, 2017 Active 1 tablet OneTouch Delica Lancets 33G [facility] 19019161215 Active TEST 3 TIMES A DAY Xyzal [facility] 03133125489 5 MG PO daily PRN Active TAKE 1 TABLET BY MOUTH AT BEDTIME NEEDED Lovastatin [facility] 25886668482 20 MG Active TAKE 1 TABLET BY MOUTH EVERY DAY D3-50 [facility] 23580400866 92138 UNIT Active TAKE ONE CAPSULE BY MOUTH EVERY WEEK Isosorbide Mononitrate CR [facility] 43732830151 60 MG Active TAKE 1 TABLET BY MOUTH DAILY Probiotic [facility] 60162033102 Orally November 15, 2015 Active as directed Elocon [facility] 16476021650 0.1 % Externally Once a day September 11, 2014 Active 1 application to affected area Metoprolol Succinate ER [facility] 86928915260 50 mg Active 1 tab Tresiba FlexTouch [facility] 72953838369 100 UNIT/ML Subcutaneous daily December 09, 2017 Active 20 UNITS Furosemide [facility] 51505140594 20 MG Orally Once a day January 04, 2018 Active 1 tablet Lorazepam [facility] 02577192596 0.5 MG Active TAKE 1 TABLET BY MOUTH AT BEDTIME NEEDED Gas-X [facility] 52507958094 80 MG Orally Four times a day November 15, 2015 Active 1 tablet after meals and at bedtime as needed Baclofen ND 31307992384 10 MG Active TAKE 1 TABLET BY MOUTH 3 TIMES A DAY NEEDED. True Metrix Blood Glucose Test [facility] 81152897769 N/A Active USE TO TEST BLOOD GLUCOSE THREE TIMES DAILY Accu-Chek Softclix Lancets [facility] 71651662493 N/A Active USE TO TEST BLOOD GLUCOSE THREE TIMES DAILY Nitrostat [facility] 03719545496 0.[address] ONE TABLET UNDER THE TONGUE DAILY NEEDED BD Insulin Syr Ultrafine II [facility] 54369940120 31G X 5/16" 0.5 ML Active USE 1 DAILY WITH INSULIN Vital Signs Date/Time: January 04, 2018 BMI 27.53 Index Weight 141 lbs Height 60 in Cardiac Monitoring Heart Rate 72 /min Blood Pressure Diastolic 85 mm Hg Blood Pressure Systolic 140 mm Hg Results No Known Results Summary Purpose [employer] Submission
--- OUTSIDE RECORDS SUMMARY | 2018-06-21 08:43 | XMS REPORT ---
Author Author Joel Le Organization [employer] Address Unknown Phone Unavailable Care Team Providers Care Sole Polisher Name Role Phone Joel Le CP Unavailable Encounters Encounter Location Date Unknown Joel Le MD September 11, 2014 Unknown Joel Le MD November 21, 2014 Unknown Joel Le MD May 25, 2015 Unknown Joel Le MD Jun 25, 2015 Unknown Joel Le MD Feb 10, 2014 Unknown Joel Le MD Feb 21, 2014 CHECK UP Joel Le MD Jun 26, 2014 Unknown Joel Le MD September 11, 2015 Problems Problem Type Condition ICD-9 Code Onset Dates Condition Status Problem 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 Problem Major depression F32.9 Active Problem 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 Problem Body mass index (BMI) 29.0-29.9, adult Z68.29 Active Problem Age-related osteoporosis without current pathological fracture M81.0 Active Problem 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 Problem 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 Problem Anxiety disorder, unspecified F41.9 Active Problem Atherosclerotic heart disease of [place] coronary artery without angina pectoris I25.10 Active Problem Gastro-esophageal reflux disease without esophagitis K21.9 Active Assessment Atherosclerotic heart disease of [place] coronary artery without angina pectoris I25.10 Active Assessment Age-related osteoporosis without current pathological fracture M81.0 Active Assessment 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 Assessment Gastro-esophageal reflux disease without esophagitis K21.9 Active Assessment 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 Problem Eczema 692.9 Active Assessment Hyperlipemia, mixed E78.2 Active Problem Gout M10.9 Active Assessment 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 Problem Hyperlipemia, mixed E78.2 Active Medications Medication Code System Code Instructions Start Date End Date Status Dosage Lisinopril [facility] 66124195043 40 MG Active TAKE 1 TABLET BY MOUTH EVERY MORNING Glucophage XR [facility] 89455201908 500 MG Active TAKE 1 TABLET BY MOUTH TWICE A DAY Isosorbide Mononitrate CR [facility] 45692984937 60 MG Active TAKE 1 TABLET BY MOUTH DAILY D3-50 [facility] 31292800910 54044 UNIT Active TAKE 1 CAPSULE BY MOUTH EVERY WEEK Amlodipine Besylate [facility] 62356100649 10 MG Active TAKE HALF A TABLET BY MOUTH TWO TIMES DAILY Levemir [facility] 27003629017 100 UNIT/ML Active INJECT 20 UNITS SUBCUTANEOUSLY EVERY DAY Metoprolol Succinate ER [facility] 25445354912 50 MG Active TAKE 1 TABLET BY MOUTH EVERY DAY Lovastatin [facility] 39322917017 20 MG Active TAKE 1 TABLET BY MOUTH EVERY DAY Plavix [facility] 21313612629 75 MG Active TAKE 1 TABLET BY MOUTH EVERY DAY Omeprazole [facility] 27478389113 20 MG Active TAKE ONE CAPSULE BY MOUTH EVERY DAY Social History Social History Element Qualifiers Date Reported Tobacco Use: . Are you a: never smoker September 08, 2015 Use of recreational / street drugs? . Answer: No September 08, 2015 Do you drink alcohol? . Status: No September 08, 2015 Summary Purpose eClinicalWorks Submission
--- OUTSIDE RECORDS SUMMARY | 2018-06-21 08:43 | XMS REPORT ---
Author Author Joel Le Organization [employer] Address Unknown Phone Unavailable Care Team Providers Care Cognos Analyst Name Role Phone Joel Le CP Unavailable Allergies, Adverse Reactions, Alerts Substance Reaction Event Type N.K.D.A. 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 Problem Back pain M54.9 Active Problem Abdominal gas pain R14.1 Active Problem Vitamin D deficiency E55.9 Active Assessment Hyponatremia E87.1 Active Problem Arthropathy M12.9 Active Assessment Primary insomnia F51.01 Active Problem Primary insomnia F51.01 Active Problem [...] F41.9 Active Problem Atherosclerotic heart disease of [place] coronary artery without angina pectoris I25.10 Active Medications Medication Code System Code Instructions Start Date End Date Status Dosage Protonix [facility] 66201681649 40 mg PO daily Active TAKE 1 TABLET BY MOUTH EVERY MORNING Clonazepam [facility] 27130214186 0.5 MG Orally qhs prn Aug 12, 2017 Active 1 tablet D3-50 [facility] 55789632615 05004 UNIT Active TAKE 1 CAPSULE BY MOUTH EVERY WEEK Xyzal [facility] 77310373438 5 MG PO daily PRN Active TAKE 1 TABLET BY MOUTH AT BEDTIME NEEDED Probiotic [facility] 90191891912 Orally November 15, 2015 Active as directed OneTouch Delica Lancets 33G [facility] 22996206592 Active TEST 3 TIMES A DAY Nitrostat [facility] 66919105776 0.[address] ONE TABLET UNDER THE TONGUE DAILY NEEDED Lexapro [facility] 93772993212 10 mg Orally Once a day Jun 25, 2015 Inactive 1 tablet Lovastatin [facility] 60607614381 20 MG Active TAKE 1 TABLET BY MOUTH EVERY DAY Plavix [facility] 31906395408 75 MG Active TAKE 1 TABLET BY MOUTH EVERY DAY Mupirocin [facility] 65733385480 2 % Active APPLY TWICE DAILY Meclizine HCl [facility] 62323256754 12.5 MG Active TAKE 1 TABLET BY MOUTH 3 TIMES A DAY NEEDED Lorazepam [facility] 31390336677 0.5 MG Active TAKE 1 TABLET BY MOUTH AT BEDTIME NEEDED Amlodipine Besylate [facility] 83675860707 5 MG Orally Once a day December 21, 2015 Active 1 tablet Furosemide [facility] 38002038159 20 MG Active TAKE 1 TABLET BY MOUTH EVERY MORNING Tramadol HCl [facility] 45752620046 50 MG Inactive TAKE 1 TABLET BY MOUTH TWICE A DAY WITH FOOD Lisinopril [facility] 04231440940 40 MG Active TAKE 1 TABLET BY MOUTH EVERY MORNING Accu-Chek Softclix Lancets [facility] 50524280092 N/A Active USE TO TEST BLOOD GLUCOSE THREE TIMES DAILY Glucophage XR [facility] 52342276292 500 MG Active TAKE 1 TABLET BY MOUTH TWICE A DAY Tizanidine HCl [facility] 73363142679 4 MG Orally qhs prn November 22, 2014 October 07, 2017 Active 1 tablet as needed BD Insulin Syr Ultrafine II [facility] 88430166970 31G X 5/16" 0.5 ML Active USE 1 DAILY WITH INSULIN Elocon [facility] 66705492931 0.1 % Externally Once a day September 11, 2014 Active 1 application to affected area Levemir [facility] 72950053023 100 UNIT/ML Active INJECT 20 UNITS SUBCUTANEOUSLY EVERY DAY Isosorbide Mononitrate CR [facility] 23297805144 60 MG Active TAKE 1 TABLET BY MOUTH DAILY True Metrix Blood Glucose Test [facility] 35194705579 N/A Active USE TO TEST BLOOD GLUCOSE THREE TIMES DAILY Nizoral [facility] 77817515640 2 % Externally September 08, 2015 Active as directed Nystatin [facility] 29438798029 026373 UNIT/GM Externally Twice a day October 30, 2016 Active 1 application to affected area Metoprolol Succinate ER ND 76599311678 50 MG Orally Once a day October 30, 2016 Active 1 1/2 tabs Gas-X [facility] 37932625627 80 MG Orally Four times a day November 15, 2015 Active 1 tablet after meals and at bedtime as needed Vital Signs Date/Time: Aug 12, 2017 BMI 28.67 Index Weight 146.8 lbs Height 60 in Cardiac Monitoring Heart Rate 72 /min Blood Pressure Diastolic 80 mm Hg Blood Pressure Systolic 120 mm Hg Results Name Result Date Reference Range Unit Abnormality Flag BASIC METABOLIC PANEL ----CHLORIDE 103 [id number] 98-110 mmol/L N ----POTASSIUM 4.8 74451266 3.5-5.3 mmol/L N ----SODIUM 136 [id number] 135-146 mmol/L N ----BUN/CREATININE RATIO 14 [id number] 6-22 (calc) N ----eGFR 65 [id number] > OR=60 mL/min/1.73m2 N ----CALCIUM 9.1 43096902 8.6-10.4 mg/dL N ----GLUCOSE 102 97587932 65-99 mg/dL H ----CARBON DIOXIDE 28 20170812 20-31 mmol/L N ----UREA NITROGEN (BUN) 13 20170812 7-25 mg/dL N ----CREATININE 0.94 20170812 0.60-0.88 mg/dL H ----eGFR NON-AFR. YEMENI 56 [id number] > OR=60 mL/min/1.73m2 L Summary Purpose eClinicalWorks Submission
--- OUTSIDE RECORDS SUMMARY | 2018-06-21 08:43 | XMS REPORT ---
Author Author Joel Le Organization [employer] Address Unknown Phone Unavailable Care Team Providers Care Director Instructional Material Name Role Phone Joel Le CP Unavailable Allergies No Known Allergies Problems Problem Type Condition Code Onset Dates Condition Status Problem Abdominal gas pain R14.1 Active Problem 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 Active Problem Back pain M54.9 Active Problem Primary insomnia F51.01 Active Problem Contact dermatitis and other eczema, due to unspecified cause L25.9 Active Problem Vitamin D deficiency E55.9 Active Assessment Type 2 diabetes mellitus 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 Active Problem Type 2 diabetes mellitus 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 Active Problem Upset stomach K30 Active Problem Osteoporosis M81.0 Active Problem Arthropathy M12.9 Active Problem Essential (primary) hypertension I10 Active Problem 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 Problem 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 Problem Gout M10.9 Active Problem Hyperlipemia, mixed E78.2 Active Problem 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 Problem Gastro-esophageal reflux disease without esophagitis K21.9 Active Problem Anxiety disorder, unspecified F41.9 Active Problem Atherosclerotic heart disease of [place] coronary artery without angina pectoris I25.10 Active Problem Body mass index (BMI) 29.0-29.9, adult Z68.29 Active Problem 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
--- OUTSIDE RECORDS SUMMARY | 2018-06-21 08:43 | XMS REPORT ---
Author Author Joel Le Organization [employer] Address Unknown Phone Unavailable Care Team Providers Care Beef Lugger Name Role Phone Joel Le CP Unavailable Allergies, Adverse Reactions, Alerts Substance Reaction Event Type N.K.D.A. Info Not Available Non Drug Allergy Encounters Encounter Location Date Unknown Joel Le MD September 11, 2014 Unknown Joel Le MD November 21, 2014 Unknown Joel Le MD May 25, 2015 Unknown Joel Le MD Jun 25, 2015 Unknown Joel Le MD Feb 10, 2014 Unknown Joel Le MD Feb 21, 2014 CHECK UP Joel Le MD Jun 26, 2014 Unknown Joel Le MD September 11, 2015 Unknown Joel Le MD September 06, 2015 Problems Problem Type Condition ICD-9 Code Onset Dates Condition Status Assessment Major depression F32.9 Active Problem Gout M10.9 Active Assessment Anxiety disorder, unspecified F41.9 Active Problem Hyperlipemia, mixed E78.2 Active Assessment 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 Problem 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 Problem Major depression F32.9 Active Problem 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 Problem Body mass index (BMI) 29.0-29.9, adult Z68.29 Active Problem Age-related osteoporosis without current pathological fracture M81.0 Active Assessment Age-related osteoporosis without current pathological fracture M81.0 Active Assessment Atherosclerotic heart disease of [place] coronary artery without angina pectoris I25.10 Active Problem 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 Assessment Gastro-esophageal reflux disease without esophagitis K21.9 Active Problem 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 Problem Anxiety disorder, unspecified F41.9 Active Problem Atherosclerotic heart disease of [place] coronary artery without angina pectoris I25.10 Active Problem Gastro-esophageal reflux disease without esophagitis K21.9 Active Assessment Hyperlipemia, mixed E78.2 Active Assessment 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 69808913918 10 MG Active TAKE HALF A TABLET BY MOUTH TWO TIMES DAILY Levemir [facility] 05639077795 100 UNIT/ML Active INJECT 20 UNITS SUBCUTANEOUSLY EVERY DAY Lovastatin [facility] 31403242999 20 MG Active TAKE 1 TABLET BY MOUTH EVERY DAY Metoprolol Succinate ER [facility] 36174808571 50 MG Active TAKE 1 TABLET BY MOUTH EVERY DAY Lexapro [facility] [address]-09 10 mg Orally Once a day Jun 25, 2015 Active 1 tablet Omeprazole [facility] 47784474711 20 MG Active TAKE ONE CAPSULE BY MOUTH EVERY DAY Tramadol HCl [facility] 61027707971 50 MG Active TAKE 1 TABLET BY MOUTH TWICE DAILY WITH FOOD NEEDED Lidocaine [facility] [address]-37 5 % Externally Three times a day September 08, 2015 Active 1 application to affected area as needed Glucophage XR [facility] 81788979382 500 MG Active TAKE 1 TABLET BY MOUTH TWICE A DAY Isosorbide Mononitrate CR [facility] 08167602846 60 MG Active TAKE 1 TABLET BY MOUTH DAILY Nitrostat [facility] 45615182567 0.[address] ONE TABLET UNDER THE TONGUE DAILY NEEDED Meloxicam [facility] 16348716515 15 MG Active TAKE 1 TABLET BY MOUTH DAILY BD Insulin Syr Ultrafine II [facility] 13076954069 31G X 5/16" 0.5 ML Active USE 1 DAILY WITH INSULIN Meclizine HCl [facility] 11342813567 12.5 MG Active TAKE 1 TABLET BY MOUTH 3 TIMES A DAY NEEDED Nizoral [facility] [address]-55 2 % Externally September 08, 2015 Active as directed Xyzal [facility] [address]-11 5 MG Orally Once a day September 08, 2015 October 08, 2015 Active 1 tablet in the evening Plavix [facility] 73857060185 75 MG Active TAKE 1 TABLET BY MOUTH EVERY DAY D3-[address] [facility] 33319351133 17366 UNIT Active TAKE 1 CAPSULE BY MOUTH EVERY WEEK Mupirocin [facility] 80857504961 2 % Active APPLY TWICE DAILY Furosemide [facility] 82324483159 20 MG Active TAKE 1 TABLET BY MOUTH EVERY MORNING Tizanidine HCl [facility] [address]-63 4 mg Orally qhs prn November 22, 2014 Active 1 tablet as needed Lisinopril [facility] 31433418587 40 MG Active TAKE 1 TABLET BY MOUTH EVERY MORNING Lorazepam [facility] 90816951693 0.5 MG Active TAKE 1 TABLET BY MOUTH AT BEDTIME NEEDED Elocon [facility] [address]-61 0.1 % Externally Once a day September 11, 2014 Active 1 application to affected area Social History Social History Element Qualifiers Date Reported Tobacco Use: . Are you a: never smoker September 08, 2015 Use of recreational / street drugs? . Answer: No September 08, 2015 Do you drink alcohol? . Status: No September 08, 2015 Vital Signs Date/Time: September 06, 2015 Weight 149.6 lbs Height 60 in Cardiac Monitoring Heart Rate 72 /min Blood Pressure Diastolic 74 mm Hg Blood Pressure Systolic 130 mm Hg Summary Purpose eClinicalWorks Submission
--- OUTSIDE RECORDS SUMMARY | 2018-06-21 08:43 | XMS REPORT ---
Author Author Joel Le Organization [employer] Address Unknown Phone Unavailable Care Team Providers Care Preparing Box Tender Name Role Phone Joel Le CP Unavailable Allergies, Adverse Reactions, Alerts Substance Reaction Event Type N.K.D.A. 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 Assessment Type 2 diabetes mellitus 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 Active Problem Abdominal gas pain R14.1 Active Problem 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 Active Problem Back pain M54.9 Active Problem Primary insomnia F51.01 Active Problem Vitamin D deficiency E55.9 Active Problem Contact dermatitis and other eczema, due to unspecified cause L25.9 Active Assessment Fracture of unspecified part of neck of right femur, initial encounter for open fracture type IIIA, IIIB, or IIIC S72.001C Active Problem Type 2 diabetes mellitus 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 Active Assessment Fracture of unspecified part of neck of left femur, initial encounter for open fracture type IIIA, IIIB, or IIIC S72.002C Active Problem Upset stomach K30 Active Problem [...] mass index (BMI) 29.0-29.9, adult Z68.29 Active Medications Medication Code System Code Instructions Start Date End Date Status Dosage Metoprolol Succinate ER [facility] 98958025526 50 mg Active TAKE 1 AND 1/2 (HALF) TABLET BY MOUTH DAILY D3-50 [facility] 25522938603 28950 UNIT Active TAKE ONE CAPSULE BY MOUTH EVERY WEEK Accu-Chek Softclix Lancets [facility] 31171419626 N/A Active USE TO TEST BLOOD GLUCOSE THREE TIMES DAILY Xyzal [facility] 54185051261 5 MG PO daily PRN Active TAKE 1 TABLET BY MOUTH AT BEDTIME NEEDED Basaglar KwikPen [facility] 78887558563 100 UNIT/ML Subcutaneous daily November 20, 2017 Active 20 UNITS Nizoral [facility] 15923657936 2 % Externally September 08, 2015 Active as directed Probiotic [facility] 68522396092 Orally November 15, 2015 Active as directed Protonix [facility] 13866481518 40 mg PO daily Active TAKE 1 TABLET BY MOUTH EVERY MORNING True Metrix Blood Glucose Test [facility] 22725779518 N/A Active USE TO TEST BLOOD GLUCOSE THREE TIMES DAILY Baclofen [facility] 22885372494 10 MG Active TAKE 1 TABLET BY MOUTH 3 TIMES A DAY NEEDED. Elocon [facility] 74879974155 0.1 % Externally Once a day September 11, 2014 Active 1 application to affected area Lisinopril [facility] 53772054152 20 MG Orally Once a day November 27, 2017 Active 1 tablet Meclizine HCl [facility] 53957451216 12.5 MG Active TAKE 1 TABLET BY MOUTH 3 TIMES A DAY NEEDED Mupirocin [facility] 19144130025 2 % Active APPLY TWICE DAILY Clonazepam [facility] 35324504774 0.5 MG Orally qhs prn Aug 12, 2017 Active 1 tablet Furosemide [facility] 14164337945 20 MG Active TAKE 1 TABLET BY MOUTH EVERY MORNING Nitrostat [facility] 16090044282 0.[address] ONE TABLET UNDER THE TONGUE DAILY NEEDED Gas-X [facility] 91558372458 80 MG Orally Four times a day November 15, 2015 Active 1 tablet after meals and at bedtime as needed BD Insulin Syr Ultrafine II [facility] 83942682068 31G X 5/16" 0.5 ML Active USE 1 DAILY WITH INSULIN Lovastatin [facility] 46160157226 20 MG Active TAKE 1 TABLET BY MOUTH EVERY DAY Lorazepam [facility] 83036996018 0.5 MG Active TAKE 1 TABLET BY MOUTH AT BEDTIME NEEDED Nystatin [facility] 78682262744 016298 UNIT/GM Externally Twice a day October 30, 2016 Active 1 application to affected area Plavix [facility] 63219192222 75 MG Active TAKE 1 TABLET BY MOUTH EVERY DAY OneTouch Nuno Lancbk 33G [facility] 60398430556 Active TEST 3 TIMES A DAY Lisinopril [facility] 82182740216 40 MG Inactive TAKE 1 TABLET BY MOUTH EVERY MORNING Glucophage XR [facility] 43233925097 500 MG Active TAKE 1 TABLET BY MOUTH TWICE A DAY Isosorbide Mononitrate CR [facility] 19581999823 60 MG Active TAKE 1 TABLET BY MOUTH DAILY Amlodipine Besylate [facility] 99231709053 5 MG Orally Once a day December 21, 2015 Inactive 1 tablet Vital Signs Date/Time: November 27, 2017 BMI 29.29 Index Weight 150 lbs Height 60 in Cardiac Monitoring Heart Rate 90 /min Blood Pressure Diastolic 60 mm Hg Blood Pressure Systolic 110 mm Hg Results No Known Results Summary Purpose eClinicalWorks Submission
--- OUTSIDE RECORDS SUMMARY | 2018-06-21 08:43 | XMS REPORT ---
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 26706655307 100 UNIT/ML Subcutaneous daily November 20, 2017 Active [address] [facility] 29066611763 100 UNIT/ML Inactive INJECT 20 UNITS SUBCUTANEOUSLY EVERY DAY Results No Known Results Summary Purpose eClinicalWorks Submission
--- OUTSIDE RECORDS SUMMARY | 2018-06-21 08:43 | XMS REPORT ---
Author Author Joel Le Organization [employer] Address Unknown Phone Unavailable Care Team Providers Care Pulmonary Function Technician Name Role Phone Joel Le CP Unavailable [...] Active Problem Hyperlipemia, mixed E78.2 Active Assessment Gastro-esophageal reflux disease without esophagitis K21.9 Active Problem Contact dermatitis and other eczema, [...] E11.29 Active Problem Atherosclerotic heart disease of [place] coronary artery without angina pectoris I25.10 Active Medications Medication Code System Code Instructions Start Date End Date Status Dosage Protonix [facility] 78430399298 40 mg PO daily Active TAKE 1 TABLET BY MOUTH EVERY MORNING Results No Known Results Summary Purpose eClinicalWorks Submission
--- OUTSIDE RECORDS SUMMARY | 2018-06-21 08:43 | XMS REPORT ---
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 Problem Anxiety disorder, unspecified F41.9 Active Problem Abdominal gas pain R14.1 Active Problem 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 Problem Back pain M54.9 Active Problem Atherosclerotic heart disease of [place] coronary artery without angina pectoris I25.10 Active Problem Gastro-esophageal reflux disease without esophagitis K21.9 Active Problem Body mass index (BMI) 29.0-29.9, adult Z68.29 Active Problem Age-related osteoporosis without current pathological fracture M81.0 Active Assessment Abdominal gas pain R14.1 Active Assessment Gastro-esophageal reflux disease without esophagitis K21.9 Active Problem Gout M10.9 Active Problem Hyperlipemia, mixed E78.2 Active Assessment Back pain M54.9 Active Problem 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 Problem Eczema 692.9 Active Problem 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 Medications Medication Code System Code Instructions Start Date End Date Status Dosage Tramadol HCl [facility] 71829756107 50 MG Active TAKE 1 TABLET BY MOUTH TWICE DAILY WITH FOOD NEEDED Nitrostat [facility] 32587394241 0.[address] ONE TABLET UNDER THE TONGUE DAILY NEEDED Probiotic [facility] 69901-[address]73 Orally November 15, 2015 Active as directed Gas-X [facility] [address]-16 80 MG Orally Four times a day November 15, 2015 Active 1 tablet after meals and at bedtime as needed Lisinopril [facility] 87007652066 40 MG Active TAKE 1 TABLET BY MOUTH EVERY MORNING Isosorbide Mononitrate CR [facility] 80126793721 60 MG Active TAKE 1 TABLET BY MOUTH DAILY Omeprazole [facility] 97326642148 20 MG Inactive TAKE ONE CAPSULE BY MOUTH EVERY DAY Meclizine HCl [facility] 91300825815 12.5 MG Active TAKE 1 TABLET BY MOUTH 3 TIMES A DAY NEEDED Protonix [facility] [address]-19 40 MG Orally Once a day November 15, 2015 Active 1 tablet Lorazepam [facility] 53995193017 0.5 MG Active TAKE 1 TABLET BY MOUTH AT BEDTIME NEEDED Amlodipine Besylate [facility] 02915919101 10 MG Active TAKE HALF A TABLET BY MOUTH TWO TIMES DAILY Levemir [facility] 02882291212 100 UNIT/ML Active INJECT 20 UNITS SUBCUTANEOUSLY EVERY DAY Plavix [facility] 85186960820 75 MG Active TAKE 1 TABLET BY MOUTH EVERY DAY D3-50 [facility] 58720923157 56795 UNIT Active TAKE 1 CAPSULE BY MOUTH EVERY WEEK BD Insulin Syr Ultrafine II [facility] 61523657647 31G X 5/16" 0.5 ML Active USE 1 DAILY WITH INSULIN Furosemide [facility] 79971040435 20 MG Active TAKE 1 TABLET BY MOUTH EVERY MORNING Lovastatin [facility] 36909915111 20 MG Active TAKE 1 TABLET BY MOUTH EVERY DAY Mupirocin [facility] 62959234007 2 % Active APPLY TWICE DAILY Elocon [facility] [address]-46 0.1 % Externally Once a day September 11, 2014 Active 1 application to affected area Lidocaine [facility] [address]-93 5 % Externally Three times a day September 08, 2015 Active 1 application to affected area as needed Tizanidine HCl [facility] [address]-69 4 mg Orally qhs prn November 22, 2014 Active 1 tablet as needed Glucophage XR [facility] 93838801104 500 MG Active TAKE 1 TABLET BY MOUTH TWICE A DAY Nizoral [facility] [address]-67 2 % Externally September 08, 2015 Active as directed Lexapro [facility] [address]-88 10 mg Orally Once a day Jun 25, 2015 Active 1 tablet [facility] 77496842651 50 MG Active TAKE 1 TABLET BY MOUTH EVERY DAY Social History Social History Element Qualifiers Date Reported Tobacco Use: . Are you a: never smoker November 15, 2015 Use of recreational / street drugs? . Answer: No November 15, 2015 Do you drink alcohol? . Status: No November 15, 2015 Family history Qualifier Description Comment Date Reported Maternal Grandmother Comment not available November 15, 2015 Paternal Grandmother Comment not available November 15, 2015 Siblings Comment not available November 15, 2015 Maternal Grandfather Comment not available November 15, 2015 Children Comment not available November 15, 2015 Family Hx of Comment not available November 15, 2015 Father Comment not available November 15, 2015 Paternal Grandfather Comment not available November 15, 2015 Mother Comment not available November 15, 2015 Other: Comment not available November 15, 2015 Vital Signs Date/Time: November 15, 2015 Weight 148 lbs Height 60 in Cardiac Monitoring Heart Rate 68 /min Blood Pressure Diastolic 65 mm Hg Blood Pressure Systolic 110 mm Hg Summary Purpose eClinicalWorks Submission
--- OUTSIDE RECORDS SUMMARY | 2018-06-21 08:43 | XMS REPORT ---
Author Author Joel Le Organization eClinicalWorks Address Unknown Phone Unavailable Care Team Providers Care Linderman Machine Operator Name Role Phone Joel Le CP Unavailable Allergies, Adverse Reactions, Alerts Substance Reaction Event Type N.K.D.A. 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 Active Assessment Atherosclerotic heart disease of [place] coronary artery without angina pectoris I25.10 Active Assessment Gastro-esophageal reflux disease without esophagitis K21.9 Active Assessment Osteoporosis M81.0 Active Assessment Vitamin D deficiency E55.9 Active Assessment Urinary tract infection N39.0 Active Problem Gastro-esophageal reflux disease without esophagitis K21.9 Active Assessment Abdominal pain, generalized R10.84 Active Problem Atherosclerotic heart disease of [place] coronary artery without angina pectoris I25.10 Active Assessment Hyperlipemia, mixed E78.2 Active Problem Anxiety disorder, unspecified F41.9 Active Problem Abdominal gas pain R14.1 Active Problem 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 Problem Vitamin D deficiency E55.9 Active Problem Essential (primary) hypertension I10 Active Assessment Fatigue R53.83 Active Assessment 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 Problem Arthropathy M12.9 Active Assessment 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 Problem 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 Active Problem Back pain M54.9 Active Problem Upset stomach K30 Active Problem Osteoporosis M81.0 Active Problem Gout M10.9 Active Problem Hyperlipemia, mixed E78.2 Active Assessment Annual physical exam Z00.00 Active Problem Contact dermatitis and other eczema, due to unspecified cause L25.9 Active Problem Body mass index (BMI) 29.0-29.9, adult Z68.29 Active Problem 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 Problem 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 Problem 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 Medications Medication Code System Code Instructions Start Date End Date Status Dosage Lorazepam NDC 48481488486 0.5 MG Active TAKE 1 TABLET BY MOUTH AT BEDTIME NEEDED Nitrostat [facility] 04589470329 0.[address] ONE TABLET UNDER THE TONGUE DAILY NEEDED Probiotic [facility] 77729071606 Orally November 15, 2015 Active as directed Amlodipine Besylate [facility] 45888737249 5 MG Orally Once a day December 21, 2015 Active 1 tablet Plavix [facility] 37440615883 75 MG Active TAKE 1 TABLET BY MOUTH EVERY DAY Metoprolol Succinate ER [facility] 51568823605 50 MG Orally Once a day October 30, 2016 Active 1 1/2 tabs Elocon [facility] 35543121153 0.1 % Externally Once a day September 11, 2014 Active 1 application to affected area Accu-Chek Softclix Lancets [facility] 46397952598 N/A Active USE TO TEST BLOOD GLUCOSE THREE TIMES DAILY Nizoral [facility] 17280892459 2 % Externally September 08, 2015 Active as directed Lisinopril [facility] 65472785304 40 MG Active TAKE 1 TABLET BY MOUTH EVERY MORNING Lovastatin [facility] 94439321035 20 MG Active TAKE 1 TABLET BY MOUTH EVERY DAY Isosorbide Mononitrate CR [facility] 08127703551 60 MG Active TAKE 1 TABLET BY MOUTH DAILY Nystatin [facility] 44705995160 851149 UNIT/GM Externally Twice a day October 30, 2016 Active 1 application to affected area Lexapro [facility] 34015613320 10 mg Orally Once a day Jun 25, 2015 Active 1 tablet True Metrix Blood Glucose Test [facility] 45468367431 N/A Active USE TO TEST BLOOD GLUCOSE THREE TIMES DAILY BD Insulin Syr Ultrafine II [facility] 60590027968 31G X 5/16" 0.5 ML Active USE 1 DAILY WITH INSULIN Meclizine HCl [facility] 41536501390 12.5 MG Active TAKE 1 TABLET BY MOUTH 3 TIMES A DAY NEEDED Protonix [facility] 95680432257 40 MG PO daily Active TAKE 1 TABLET BY MOUTH EVERY MORNING OneTouch Delica Lancets 33G [facility] 69526086779 Active TEST 3 TIMES A DAY Gas-X [facility] 41717187865 80 MG Orally Four times a day November 15, 2015 Active 1 tablet after meals and at bedtime as needed Mupirocin [facility] 70968009095 2 % Active APPLY TWICE DAILY Xyzal [facility] 26779131233 5 MG PO daily PRN Active TAKE 1 TABLET BY MOUTH AT BEDTIME NEEDED Levemir [facility] 77105197046 100 UNIT/ML Active INJECT 20 UNITS SUBCUTANEOUSLY EVERY DAY Furosemide [facility] 95874867522 20 MG Active TAKE 1 TABLET BY MOUTH EVERY MORNING D3-50 [facility] 71664881589 95467 UNIT Active TAKE 1 CAPSULE BY MOUTH EVERY WEEK Tizanidine HCl [facility] 55824105664 4 MG Orally qhs prn November 22, 2014 October 07, 2017 Active 1 tablet as needed Glucophage XR [facility] 26634018794 500 MG Active TAKE 1 TABLET BY MOUTH TWICE A DAY Tramadol HCl [facility] 80643407915 50 MG Active TAKE 1 TABLET BY MOUTH TWICE A DAY WITH FOOD Vital Signs Date/Time: Jul 28, 2017 BMI 28.90 Index Weight 148 lbs Height 60 in Cardiac Monitoring Heart Rate 60 /min Blood Pressure Diastolic 80 mm Hg Blood Pressure Systolic 125 mm Hg Results Name Result Date Reference Range Unit Abnormality Flag COMPREHENSIVE METABOLIC PANEL ----CALCIUM 9.5 [id number] 8.6-10.4 mg/dL N ----CARBON DIOXIDE 31 20170728 20-31 mmol/L N ----ALT 12 20170728 6-29 U/L N ----CREATININE 0.91 20170728 0.60-0.88 mg/dL H ----AST 18 20170728 10-35 U/L N ----eGFR NON-AFR. [place] 58 [id number] > OR=60 mL/min/1.73m2 L ----ALKALINE PHOSPHATASE 60 20170728 33-130 U/L N ----eGFR 68 20170728 > OR=60 mL/min/1.73m2 N ----BILIRUBIN, TOTAL 0.4 20170728 0.2-1.2 mg/dL N ----BUN/CREATININE RATIO 13 20170728 6-22 (calc) N ----ALBUMIN/GLOBULIN RATIO 1.3 20170728 1.0-2.5 (calc) N ----SODIUM 128 20170728 135-146 mmol/L L ----GLOBULIN 3.2 20170728 1.9-3.7 g/dL (calc) N ----POTASSIUM 5.1 20170728 3.5-5.3 mmol/L N ----GLUCOSE 86 20170728 65-99 mg/dL N ----CHLORIDE 91 20170728 98-110 mmol/L L ----ALBUMIN 4.2 20170728 3.6-5.1 g/dL N ----UREA NITROGEN (BUN) 12 20170728 7-25 mg/dL N ----PROTEIN, TOTAL 7.4 20170728 6.1-8.1 g/dL N URINALYSIS, COMPLETE W/REFLEX TO CULTURE ----SQUAMOUS EPITHELIAL CELLS NONE SEEN 20170728 < OR=5 /HPF N ----GLUCOSE NEGATIVE 20170728 NEGATIVE N ----PH 8.0 20170728 5.0-8.0 N ----RBC NONE SEEN 20170728 < OR=2 /HPF N ----KETONES NEGATIVE 20170728 NEGATIVE N ----WBC NONE SEEN 20170728 < OR=5 /HPF N ----BILIRUBIN NEGATIVE 20170728 NEGATIVE N ----LEUKOCYTE ESTERASE NEGATIVE 20170728 NEGATIVE N ----COLOR YELLOW 20170728 YELLOW N ----REFLEXIVE URINE CULTURE NO CULTURE INDICATED 20170728 ----HYALINE CAST NONE SEEN 20170728 NONE SEEN /LPF N ----SPECIFIC GRAVITY 1.012 20170728 1.001-1.035 N ----BACTERIA NONE SEEN 20170728 NONE SEEN /HPF N ----APPEARANCE CLEAR 20170728 CLEAR N ----NITRITE NEGATIVE 20170728 NEGATIVE N ----OCCULT BLOOD NEGATIVE 20170728 NEGATIVE N ----PROTEIN NEGATIVE 20170728 NEGATIVE N CBC (H/H, RBC, INDICES, WBC, PLT) ----PLATELET COUNT 237 20170728 140-400 Thousand/uL N ----RDW 14.5 20170728 11.0-15.0 % N ----MCHC 33.2 20170728 32.0-36.0 g/dL N ----MCH 27.3 20170728 27.0-33.0 pg N ----MCV 82.2 20170728 80.0-100.0 fL N ----WHITE BLOOD CELL COUNT 5.8 20170728 3.8-10.8 Thousand/uL N ----MPV 11.4 20170728 7.5-12.5 fL N ----RED BLOOD CELL COUNT 5.06 20170728 3.80-5.10 Million/uL N ----HEMOGLOBIN 13.8 20170728 11.7-15.5 g/dL N ----HEMATOCRIT 41.6 20170728 35.0-45.0 % N LIPASE ----LIPASE 51 20170728 7-60 U/L N MICROALBUMIN, RANDOM URINE (W/CREATININE) ----MICROALBUMIN/CREATININE RATIO, RANDOM URINE 11 20170728 <30 mcg/mg creat N ----CREATININE, RANDOM URINE 66 20170728 20-320 mg/dL N ----MICROALBUMIN 0.7 20170728 See Note: mg/dL N VITAMIN D, 25-HYDROXY, LC/MS/MS ----VITAMIN D,25-OH,TOTAL,IA 60 20170728 30-100 ng/mL N AMYLASE ----AMYLASE 85 20170728 21-101 U/L N LIPID PANEL ----NON HDL CHOLESTEROL 90 27124128 <130 mg/dL (calc) N ----CHOL/HDLC RATIO 3.1 50272991 <5.0 (calc) N ----LDL-CHOLESTEROL 65 80024419 mg/dL (calc) N ----TRIGLYCERIDES 169 43370566 <150 mg/dL H ----HDL CHOLESTEROL 43 32200188 >50 mg/dL L ----CHOLESTEROL, TOTAL 133 15668970 <200 mg/dL N TSH ----TSH 0.76 20170728 0.40-4.50 mIU/L N HEMOGLOBIN A1c ----HEMOGLOBIN A1c 5.9 13769995 <5.7 % of total Hgb H Summary Purpose eClinicalWorks Submission
--- OUTSIDE RECORDS SUMMARY | 2018-06-21 08:43 | XMS REPORT ---
Author Author Joel Le Organization eClinicalWorks Address Unknown Phone Unavailable Care Team Providers Care Tower Crane Operator Name Role Phone Joel Le CP [...] F41.9 Active Problem Atherosclerotic heart disease of [place] coronary artery without angina pectoris I25.10 Active Medications Medication Code System Code Instructions Start Date End Date Status Dosage Metoprolol Succinate ER [facility] 71584073287 50 mg Active TAKE 1 AND 1/2 (HALF) TABLET BY MOUTH DAILY Results No Known Results Summary Purpose eClinicalWorks Submission
--- OUTSIDE RECORDS SUMMARY | 2018-06-21 08:43 | XMS REPORT ---
Author Author Joel Le Organization eClinicalWorks Address Unknown Phone Unavailable Care Team Providers Care Granulating Blender Name Role Phone Joel Le CP Unavailable [...] F41.9 Active Problem Atherosclerotic heart disease of [place] coronary artery without angina pectoris I25.10 Active Medications Medication Code System Code Instructions Start Date End Date Status Dosage Prolia [facility] 16224000837 60 MG/ML Subcutaneous EVERY SIX MONTHS August 19, 2017 August 23, 2017 Active as directed Results No Known Results Summary Purpose eClinicalWorks Submission
--- OUTSIDE RECORDS SUMMARY | 2018-06-21 08:43 | XMS REPORT ---
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 Medications Medication Code System Code Instructions Start Date End Date Status Dosage Lorazepam [place] 28362742427 0.5 MG Active TAKE 1 TABLET BY MOUTH AT BEDTIME NEEDED Nitrostat ND 64361141789 0.[address] ONE TABLET UNDER THE TONGUE DAILY NEEDED Nizoral [facility] 13126598377 2 % Externally September 08, 2015 Active as directed Elocon ND 88468293109 0.1 % Externally Once a day September 11, 2014 Active 1 application to affected area Clonazepam ND 15793567454 0.5 MG Orally qhs prn Aug 12, 2017 Active 1 tablet Baclofen [facility] 93222197581 10 MG Active TAKE 1 TABLET BY MOUTH 3 TIMES A DAY NEEDED. Glucophage XR [facility] 65431473971 500 MG Active TAKE 1 TABLET BY MOUTH TWICE A DAY OneTouch Delica Lancets 33G [facility] 53442860267 Active TEST 3 TIMES A DAY Meclizine HCl [facility] 97143159383 12.5 MG Active TAKE 1 TABLET BY MOUTH 3 TIMES A DAY NEEDED Lovastatin [facility] 58429559245 20 MG Active TAKE 1 TABLET BY MOUTH EVERY DAY D3-50 [facility] 10830277252 44026 UNIT Active TAKE ONE CAPSULE BY MOUTH EVERY WEEK Isosorbide Mononitrate CR [facility] 07950867929 60 MG Active TAKE 1 TABLET BY MOUTH DAILY Tresiba FlexTouch [facility] 09755590864 100 UNIT/ML Subcutaneous daily December 09, 2017 Active 20 UNITS Plavix [facility] 07962719778 75 MG Inactive TAKE 1 TABLET BY MOUTH EVERY DAY Probiotic [facility] 03222588270 Orally November 15, 2015 Active as directed Gas-X [facility] 20511081953 80 MG Orally Four times a day November 15, 2015 Active 1 tablet after meals and at bedtime as needed Ecotrin Low Strength [facility] 17582354994 81 MG Orally Once a day December 11, 2017 January 10, 2018 Active 1 tablet Mupirocin [facility] 78908849582 2 % Active APPLY TWICE DAILY Lisinopril [facility] 22216563177 20 MG Orally Once a day November 27, 2017 Active 1 tablet Accu-Chek Softclix Lancets [facility] 92595681616 N/A Active USE TO TEST BLOOD GLUCOSE THREE TIMES DAILY Xyzal [facility] 32292485211 5 MG PO daily PRN Active TAKE 1 TABLET BY MOUTH AT BEDTIME NEEDED Nystatin [facility] 66781330262 779138 UNIT/GM Externally Twice a day October 30, 2016 Active 1 application to affected area Protonix [facility] 47567313233 40 mg PO daily Active TAKE 1 TABLET BY MOUTH EVERY MORNING True Metrix Blood Glucose Test [facility] 23007458448 N/A Active USE TO TEST BLOOD GLUCOSE THREE TIMES DAILY BD Insulin Syr Ultrafine II [facility] 94510685359 31G X /16" 0.5 ML Active USE 1 DAILY WITH INSULIN Metoprolol Succinate ER [facility] 42134750813 50 mg Active 1 tab Vital Signs Date/Time: December 11, 2017 BMI 27.92 Index Weight 143.0 lbs Height 60 in Cardiac Monitoring Heart Rate 80 /min Blood Pressure Diastolic 70 mm Hg Blood Pressure Systolic 135 mm Hg Results Name Result Date Reference Range Unit Abnormality Flag CBC (H/H, RBC, INDICES, WBC, PLT) ----MPV 12.3 [id number] 7.5-12.5 fL N ----HEMOGLOBIN 13.6 57320460 11.7-15.5 g/dL N ----HEMATOCRIT 42.0 00334325 35.0-45.0 % N ----MCV 84.7 59274855 80.0-100.0 fL N ----MCH 27.4 10388302 27.0-33.0 pg N ----MCHC 32.4 27911963 32.0-36.0 g/dL N ----RDW 15.3 87766912 11.0-15.0 % H ----PLATELET COUNT 223 20171211 140-400 Thousand/uL N ----WHITE BLOOD CELL COUNT 7.6 80824839 3.8-10.8 Thousand/uL N ----RED BLOOD CELL COUNT 4.96 48897274 3.80-5.10 Million/uL N COMPREHENSIVE METABOLIC PANEL ----GLOBULIN 3.3 20367767 1.9-3.7 g/dL (calc) N ----eGFR 81 20171211 > OR=60 mL/min/1.73m2 N ----eGFR NON-AFR. [place] 70 20171211 > OR=60 mL/min/1.73m2 N ----ALBUMIN 3.7 50374288 3.6-5.1 g/dL N ----SODIUM 135 20171211 135-146 mmol/L N ----PROTEIN, TOTAL 7.0 49309612 6.1-8.1 g/dL N ----BUN/CREATININE RATIO NOT APPLICABLE 20171211 6-22 (calc) ----CALCIUM 9.6 20171211 8.6-10.4 mg/dL N ----AST 10 20171211 10-35 U/L N ----GLUCOSE 174 20171211 65-139 mg/dL H ----ALKALINE PHOSPHATASE 128 20171211 33-130 U/L N ----BILIRUBIN, TOTAL 0.4 20171211 0.2-1.2 mg/dL N ----CREATININE 0.78 20171211 0.60-0.88 mg/dL N ----ALBUMIN/GLOBULIN RATIO 1.1 20171211 1.0-2.5 (calc) N ----UREA NITROGEN (BUN) 16 20171211 7-25 mg/dL N ----CARBON DIOXIDE 26 20171211 20-31 mmol/L N ----ALT 7 20171211 6-29 U/L N ----POTASSIUM 4.7 20171211 3.5-5.3 mmol/L N ----CHLORIDE 100 20171211 98-110 mmol/L N URINALYSIS, COMPLETE W/REFLEX TO CULTURE ----BACTERIA NONE SEEN 20171211 NONE SEEN /HPF N ----SQUAMOUS EPITHELIAL CELLS 0-5 [id number] < OR=5 /HPF ----REFLEXIVE URINE CULTURE NO CULTURE INDICATED 20171211 ----HYALINE CAST NONE SEEN 20171211 NONE SEEN /LPF N ----PROTEIN TRACE 20171211 NEGATIVE A ----OCCULT BLOOD NEGATIVE 20171211 NEGATIVE N ----KETONES TRACE 20171211 NEGATIVE A ----BILIRUBIN NEGATIVE 20171211 NEGATIVE N ----GLUCOSE NEGATIVE 20171211 NEGATIVE N ----LEUKOCYTE ESTERASE NEGATIVE 20171211 NEGATIVE N ----NITRITE NEGATIVE 20171211 NEGATIVE N ----RBC 0-2 73788746 < OR=2 /HPF N ----WBC 0-5 85878611 < OR=5 /HPF N ----COLOR DARK YELLOW 20171211 YELLOW N ----APPEARANCE CLEAR 20171211 CLEAR N ----SPECIFIC GRAVITY 1.022 20171211 1.001-1.035 N ----PH 6.0 20171211 5.0-8.0 N TSH ----TSH 0.66 20171211 0.40-4.50 mIU/L N Summary Purpose eClinicalWorks Submission
--- OUTSIDE RECORDS SUMMARY | 2018-06-21 08:44 | XMS REPORT ---
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 Are you a: never smoker Aug 08, 2016 Use of recreational / street drugs? . Answer: No Aug 08, 2016 Do you drink alcohol? . Status: No Aug 08, 2016 Summary Purpose eClinicalWorks Submission
--- OUTSIDE RECORDS SUMMARY | 2018-06-21 08:44 | XMS REPORT ---
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 Problem 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 Assessment Urinary tract infection N39.0 Active Problem 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 Assessment Age-related bone loss M81.0 Active Problem Anxiety disorder, unspecified F41.9 Active Problem Gastro-esophageal reflux disease without esophagitis K21.9 Active Problem 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 Problem 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 Active Problem Back pain M54.9 Active Assessment 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 Assessment 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 Problem Osteoporosis M81.0 Active Assessment Hyperlipemia, mixed E78.2 Active Problem Body mass index (BMI) 29.0-29.9, adult Z68.29 Active Problem Atherosclerotic heart disease of [place] coronary artery without angina pectoris I25.10 Active Problem Abdominal gas pain R14.1 Active Problem 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 Assessment Atherosclerotic heart disease of [place] coronary artery without angina pectoris I25.10 Active Assessment Fatigue R53.83 Active Assessment Anxiety disorder, unspecified F41.9 Active Assessment Gastro-esophageal reflux disease without esophagitis K21.9 Active Problem Gout M10.9 Active Problem Hyperlipemia, mixed E78.2 Active Assessment Annual physical exam Z00.00 Active Problem Contact dermatitis and other eczema, due to unspecified cause L25.9 Active Medications Medication Code System Code Instructions Start Date End Date Status Dosage Tizanidine HCl [facility] [address]-74 4 mg Orally qhs prn November 22, 2014 Active 1 tablet as needed Nizoral [facility] [address]-34 2 % Externally September 08, 2015 Active as directed Mupirocin [facility] 23906956417 2 % Active APPLY TWICE DAILY Lexapro [facility] [address]-71 10 mg Orally Once a day Jun 25, 2015 Active 1 tablet Tramadol HCl [facility] 09603568098 50 MG Active TAKE 1 TABLET BY MOUTH TWICE A DAY WITH FOOD NEEDED. Lisinopril [facility] 68388493677 40 MG Active TAKE 1 TABLET BY MOUTH EVERY MORNING Nitrostat [facility] 92363643785 0.[address] ONE TABLET UNDER THE TONGUE DAILY NEEDED BD Insulin Syr Ultrafine II [facility] 54883393305 31G X 5/16" 0.5 ML Active USE 1 DAILY WITH INSULIN Elocon [facility] [address]-55 0.1 % Externally Once a day September 11, 2014 Active 1 application to affected area Lovastatin [facility] 51977902200 20 MG Active TAKE 1 TABLET BY MOUTH EVERY DAY Probiotic [facility] 94277-94478 Orally November 15, 2015 Active as directed OneTouch Delica Lancets 33G [facility] 42837360231 Active TEST 3 TIMES A DAY D3-50 [facility] 00261866834 43112 UNIT Active TAKE 1 CAPSULE BY MOUTH EVERY WEEK Isosorbide Mononitrate CR [facility] 06196789669 60 MG Active TAKE 1 TABLET BY MOUTH DAILY Furosemide [facility] 02715273703 20 MG Active TAKE 1 TABLET BY MOUTH EVERY MORNING Meclizine HCl [facility] 19464840755 12.5 MG Active TAKE 1 TABLET BY MOUTH 3 TIMES A DAY NEEDED Plavix [facility] 31600628304 75 MG Active TAKE 1 TABLET BY MOUTH EVERY DAY Lorazepam [facility] 78780592991 0.5 MG Active TAKE 1 TABLET BY MOUTH AT BEDTIME NEEDED Protonix [facility] [address]-12 40 MG Orally Once a day November 15, 2015 Active 1 tablet Lidocaine [facility] [address]-33 5 % Externally Three times a day September 08, 2015 Active 1 application to affected area as needed Metoprolol Succinate ER [facility] 82024678085 50 MG Active TAKE 1 TABLET BY MOUTH EVERY DAY Amlodipine Besylate [facility] [address]-13 5 MG Orally Once a day December 21, 2015 Active 1 tablet Glucophage XR [facility] 83032398183 500 MG Active TAKE 1 TABLET BY MOUTH TWICE A DAY Levemir [facility] 28110481818 100 UNIT/ML Active INJECT 20 UNITS SUBCUTANEOUSLY EVERY DAY Gas-X [facility] [address]-34 80 MG Orally Four times a day November 15, 2015 Active 1 tablet after meals and at bedtime as needed Social History Social History Element Qualifiers Date Reported Tobacco Use: . Are you a: never smoker Jul 28, 2016 Use of recreational / street drugs? . Answer: No Jul 28, 2016 Do you drink alcohol? . Status: No Jul 28, 2016 Family history Qualifier Description Comment Date Reported Maternal Grandmother Comment not available Jul 28, 2016 Paternal Grandmother Comment not available Jul 28, 2016 Siblings Comment not available Jul 28, 2016 Maternal Grandfather Comment not available Jul 28, 2016 Children Comment not available Jul 28, 2016 Family Hx of Comment not available Jul 28, 2016 Father Comment not available Jul 28, 2016 Paternal Grandfather Comment not available Jul 28, 2016 Mother Comment not available Jul 28, 2016 Other: Comment not available Jul 28, 2016 Vital Signs Date/Time: Jul 28, 2016 Weight 151 lbs Height 60 in Cardiac Monitoring Heart Rate 64 /min Blood Pressure Diastolic 75 mm Hg Blood Pressure Systolic 130 mm Hg Results CBC (H/H, RBC, INDICES, WBC, PLT) Summary Purpose [employer]ClinicalWorks Submission
--- OUTSIDE RECORDS SUMMARY | 2018-06-21 08:44 | XMS REPORT ---
Author Author Joel Le [facility] e[employer] Address Unknown Phone Unavailable Care Team Providers Care Hand Upper And Bottom Lacer Name Role Phone Joel Le CP Unavailable [...] Unknown Joel Le MD September 06, 2015 Follow-Up Joel Le MD Jan 28, 2016 Unknown Joel Le MD December 21, [...] M54.9 Active Problem Atherosclerotic heart disease of [place] coronary artery without angina pectoris I25.10 Active Problem Gastro-esophageal reflux disease without esophagitis K21.9 Active Problem Body mass index (BMI) 29.0-29.9, adult Z68.29 Active Problem Age-related osteoporosis without current pathological fracture M81.0 Active Problem Gout M10.9 Active Problem Hyperlipemia, mixed E78.2 Active Assessment Abdominal gas pain R14.1 Active Problem 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 Problem Contact dermatitis and other eczema, due to unspecified cause L25.9 Active Problem 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 Medications Medication Code System Code Instructions Start Date End Date Status Dosage Lovastatin [facility] 93965552044 20 MG Active TAKE 1 TABLET BY MOUTH EVERY DAY D3-50 [facility] 48710600355 62201 UNIT Active TAKE 1 CAPSULE BY MOUTH EVERY WEEK Levemir [facility] 97220142815 100 UNIT/ML Active INJECT 20 UNITS SUBCUTANEOUSLY EVERY DAY Lidocaine [facility] [address]-94 5 % Externally Three times a day September 08, 2015 Active 1 application to affected area as needed Nitrostat [facility] 68046239586 0[address] ONE TABLET UNDER THE TONGUE DAILY NEEDED Tizanidine HCl [facility] [address]-81 4 mg Orally qhs prn November 22, 2014 Active 1 tablet as needed Lorazepam [facility] 02109411994 0.5 MG Active TAKE 1 TABLET BY MOUTH AT BEDTIME NEEDED Plavix [facility] 49974069044 75 MG Active TAKE 1 TABLET BY MOUTH EVERY DAY Glucophage XR [facility] 62391754494 500 MG Active TAKE 1 TABLET BY MOUTH TWICE A DAY Gas-X [facility] [address]-51 80 MG Orally Four times a day November 15, 2015 Active 1 tablet after meals and at bedtime as needed Gas-X [facility] [address]-59 80 MG Orally Four times a day Jan 28, 2016 Active 1 tablet after meals and at bedtime as needed Probiotic [facility] 54995-92837 Orally Jan 28, 2016 Active as directed Furosemide [facility] 89423812968 20 MG Active TAKE 1 TABLET BY MOUTH EVERY MORNING BD Insulin Syr Ultrafine II [facility] 80312896151 31G X 5/16" 0.5 ML Active USE 1 DAILY WITH INSULIN Isosorbide Mononitrate CR [facility] 57677497821 60 MG Active TAKE 1 TABLET BY MOUTH DAILY Metoprolol Succinate ER [facility] 81893222868 50 MG Active TAKE 1 TABLET BY MOUTH EVERY DAY Meclizine HCl [facility] 13399557085 12.5 MG Active TAKE 1 TABLET BY MOUTH 3 TIMES A DAY NEEDED Lisinopril [facility] 50303930092 40 MG Active TAKE 1 TABLET BY MOUTH EVERY MORNING Nizoral [facility] [address]-83 2 % Externally September 08, 2015 Active as directed Tramadol HCl [facility] 42133999770 50 MG Active TAKE 1 TABLET BY MOUTH TWICE A DAY WITH FOOD NEEDED. Probiotic [facility] 62026-[address]247 Orally November 15, 2015 Active as directed Lexapro [facility] [address]-78 10 mg Orally Once a day Jun 25, 2015 Active 1 tablet Mupirocin [facility] 21123989010 2 % Active APPLY TWICE DAILY Amlodipine Besylate [facility] [address]-23 5 MG Orally Once a day December 21, 2015 Active 1 tablet Protonix [facility] [address]-35 40 MG Orally Once a day November 15, 2015 Active 1 tablet Elocon [facility] [address]-61 0.1 % Externally Once a day September 11, 2014 Active 1 application to affected area Social History Social History Element Qualifiers Date Reported Tobacco Use: . Are you a: never smoker Jan 28, 2016 Use of recreational / street drugs? . Answer: No Jan 28, 2016 Do you drink alcohol? . Status: No Jan 28, 2016 Family history Qualifier Description Comment Date Reported Maternal Grandmother Comment not available Jan 28, 2016 Paternal Grandmother Comment not available Jan 28, 2016 Siblings Comment not available Jan 28, 2016 Maternal Grandfather Comment not available Jan 28, 2016 Children Comment not available Jan 28, 2016 Family Hx of Comment not available Jan 28, 2016 Father Comment not available Jan 28, 2016 Paternal Grandfather Comment not available Jan 28, 2016 Mother Comment not available Jan 28, 2016 Other: Comment not available Jan 28, 2016 Vital Signs Date/Time: Jan 28, 2016 Weight 148.8 lbs Height 60 in Cardiac Monitoring Heart Rate 64 /min Blood Pressure Diastolic 80 mm Hg Blood Pressure Systolic 130 mm Hg Summary Purpose eClinicalWorks Submission
--- OUTSIDE RECORDS SUMMARY | 2018-06-21 08:44 | XMS REPORT ---
Author Author Joel Le Organization [employer] Address Unknown Phone Unavailable Care Team Providers Care Sex Worker Or Escort Name Role Phone Joel Le CP Unavailable [...] Feb 10, 2014 Unknown Joel Le MD December 21, 2015 Unknown Joel Le MD Feb 21, 2014 [...] M54.9 Active Problem Atherosclerotic heart disease of [place] coronary artery without angina pectoris I25.10 Active Problem Gastro-esophageal reflux disease without esophagitis K21.9 Active Problem Body mass index (BMI) 29.0-29.9, adult Z68.29 Active Problem Age-related osteoporosis without current pathological fracture M81.0 Active Assessment Edema R60.9 Active Problem Gout M10.9 Active Problem Hyperlipemia, mixed E78.2 Active Assessment Other fatigue R53.83 Active Problem 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 Problem Eczema 692.9 Active Problem 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 Medications Medication Code System Code Instructions Start Date End Date Status Dosage Isosorbide Mononitrate [facility] 81846244516 60 MG Active TAKE 1 TABLET BY MOUTH DAILY Protonix [facility] [address]-15 40 MG Orally Once a day November 15, 2015 Active 1 tablet Lidocaine [facility] [address]-96 5 % Externally Three times a day September 08, 2015 Active 1 application to affected area as needed Levemir [facility] 93791487726 100 UNIT/ML Active INJECT 20 UNITS SUBCUTANEOUSLY EVERY DAY Nitrostat [facility] 34661622229 0.[address] ONE TABLET UNDER THE TONGUE DAILY NEEDED Lorazepam [facility] 01053935137 0.5 MG Active TAKE 1 TABLET BY MOUTH AT BEDTIME NEEDED Furosemide [facility] 31004229871 20 MG Active TAKE 1 TABLET BY MOUTH EVERY MORNING Plavix [facility] 55711521515 75 MG Active TAKE 1 TABLET BY MOUTH EVERY DAY Glucophage XR [facility] 05058528504 500 MG Active TAKE 1 TABLET BY MOUTH TWICE A DAY Amlodipine Besylate [facility] [address]-02 5 MG Orally Once a day December 21, 2015 Active 1 tablet Elocon [facility] [address]-25 0.1 % Externally Once a day September 11, 2014 Active 1 application to affected area Mupirocin [facility] 08115064665 2 % Active APPLY TWICE DAILY Tizanidine HCl [facility] [address]-86 4 mg Orally qhs prn November 22, 2014 Active 1 tablet as needed Nizoral [facility] [address]-11 2 % Externally September 08, 2015 Active as directed Lovastatin [facility] 71678702370 20 MG Active TAKE 1 TABLET BY MOUTH EVERY DAY D3-50 [facility] 58594368584 57275 UNIT Active TAKE 1 CAPSULE BY MOUTH EVERY WEEK Lexapro [facility] [address]-58 10 mg Orally Once a day Jun 25, 2015 Active 1 tablet Lisinopril [facility] 98312027349 40 MG Active TAKE 1 TABLET BY MOUTH EVERY MORNING Metoprolol Succinate ER [facility] 33435879503 50 MG Active TAKE 1 TABLET BY MOUTH EVERY DAY Tramadol HCl [facility] 12264194860 50 MG Active TAKE 1 TABLET BY MOUTH TWICE A DAY WITH FOOD NEEDED Probiotic [facility] 022[address]359 Orally November 15, 2015 Active as directed Meclizine HCl [facility] 02435197575 12.5 MG Active TAKE 1 TABLET BY MOUTH 3 TIMES A DAY NEEDED Gas-X [facility] [address]-21 80 MG Orally Four times a day November 15, 2015 Active 1 tablet after meals and at bedtime as needed Amlodipine Besylate [facility] 84754211443 10 MG Inactive TAKE HALF A TABLET BY MOUTH TWO TIMES DAILY BD Insulin Syr Ultrafine II [facility] 74638914433 31G X 5/16" 0.5 ML Active USE 1 DAILY WITH INSULIN Social History Social History Element Qualifiers Date Reported Tobacco Use: . Are you a: never smoker December 21, 2015 Use of recreational / street drugs? . Answer: No December 21, 2015 Do you drink alcohol? . Status: No December 21, 2015 Family history Qualifier Description Comment Date Reported Maternal Grandmother Comment not available December 21, 2015 Paternal Grandmother Comment not available December 21, 2015 Siblings Comment not available December 21, 2015 Maternal Grandfather Comment not available December 21, 2015 Children Comment not available December 21, 2015 Family Hx of Comment not available December 21, 2015 Father Comment not available December 21, 2015 Paternal Grandfather Comment not available December 21, 2015 Mother Comment not available December 21, 2015 Other: Comment not available December 21, 2015 Vital Signs Date/Time: December 21, 2015 Weight 155 lbs Height 60 in Cardiac Monitoring Heart Rate 72 /min Blood Pressure Diastolic 70 mm Hg Blood Pressure Systolic 120 mm Hg Results URINALYSIS REFLEX Summary Purpose eClinicalWorks Submission
--- OUTSIDE RECORDS SUMMARY | 2018-06-21 08:44 | XMS REPORT ---
Author Author Joel Le Organization [employer] Address Unknown Phone Unavailable Care Team Providers Care Weight Guesser Name Role Phone Joel Le CP Unavailable [...] Unknown Joel Le MD Feb 21, 2014 FUP 1 WEEK Joel Le MD Jan 14, 2016 CHECK UP Joel Le MD Jun 26, [...] M54.9 Active Problem Atherosclerotic heart disease of [place] coronary artery without angina pectoris I25.10 Active Problem Gastro-esophageal reflux disease without esophagitis K21.9 Active Problem Body mass index (BMI) 29.0-29.9, adult Z68.29 Active Problem Age-related osteoporosis without current pathological fracture M81.0 Active Assessment Neck pain M54.2 Active Problem Gout M10.9 Active Problem Hyperlipemia, mixed E78.2 Active Assessment Abdominal pain R10.9 Active Problem 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 Problem Contact dermatitis and other eczema, due to unspecified cause L25.9 Active Problem 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 Medications Medication Code System Code Instructions Start Date End Date Status Dosage Nitrostat [facility] 79294609088 0.[address] ONE TABLET UNDER THE TONGUE DAILY NEEDED Mupirocin [facility] 25017622137 2 % Active APPLY TWICE DAILY Lexapro [facility] [address]-36 10 mg Orally Once a day Jun 25, 2015 Active 1 tablet Tizanidine HCl [facility] [address]-62 4 mg Orally qhs prn November 22, 2014 Active 1 tablet as needed Lisinopril [facility] 92056869243 40 MG Active TAKE 1 TABLET BY MOUTH EVERY MORNING Glucophage XR [facility] 06086143935 500 MG Active TAKE 1 TABLET BY MOUTH TWICE A DAY Protonix [facility] [address]-04 40 MG Orally Once a day November 15, 2015 Active 1 tablet Isosorbide Mononitrate CR [facility] 28747342629 60 MG Active TAKE 1 TABLET BY MOUTH DAILY Elocon [facility] [address]-10 0.1 % Externally Once a day September 11, 2014 Active 1 application to affected area Lorazepam [facility] 74682781461 0.5 MG Active TAKE 1 TABLET BY MOUTH AT BEDTIME NEEDED Amlodipine Besylate [facility] [address]-26 5 MG Orally Once a day December 21, 2015 Active 1 tablet Nizoral [facility] [address]-83 2 % Externally September 08, 2015 Active as directed Gas-X [facility] [address]-69 80 MG Orally Four times a day November 15, 2015 Active 1 tablet after meals and at bedtime as needed Probiotic [facility] 798[address] Orally November 15, 2015 Active as directed D3-50 [facility] 11708917188 34244 UNIT Active TAKE 1 CAPSULE BY MOUTH EVERY WEEK Plavix [facility] 59193626442 75 MG Active TAKE 1 TABLET BY MOUTH EVERY DAY BD Insulin Syr Ultrafine II [facility] 63306770903 31G X 5/16" 0.5 ML Active USE 1 DAILY WITH INSULIN Furosemide [facility] 47616082174 20 MG Active TAKE 1 TABLET BY MOUTH EVERY MORNING Metoprolol Succinate ER [facility] 78509314385 50 MG Active TAKE 1 TABLET BY MOUTH EVERY DAY Tramadol HCl [facility] 47677537221 50 MG Active TAKE 1 TABLET BY MOUTH TWICE A DAY WITH FOOD NEEDED Levemir [facility] 02091609455 100 UNIT/ML Active INJECT 20 UNITS SUBCUTANEOUSLY EVERY DAY Meclizine HCl [facility] 55619798221 12.5 MG Active TAKE 1 TABLET BY MOUTH 3 TIMES A DAY NEEDED Lidocaine [facility] [address]-37 5 % Externally Three times a day September 08, 2015 Active 1 application to affected area as needed Lovastatin [facility] 19602316601 20 MG Active TAKE 1 TABLET BY MOUTH EVERY DAY Social History Social History Element Qualifiers Date Reported Tobacco Use: . Are you a: never smoker Jan 14, 2016 Use of recreational / street drugs? . Answer: No Jan 14, 2016 Do you drink alcohol? . Status: No Jan 14, 2016 Vital Signs Date/Time: Jan 14, 2016 Weight 149 lbs Height 60 in Cardiac Monitoring Heart Rate 68 /min Blood Pressure Diastolic 70 mm Hg Blood Pressure Systolic 120 mm Hg Summary Purpose eClinicalWorks Submission
--- OUTSIDE RECORDS SUMMARY | 2018-06-21 08:44 | XMS REPORT | Summary of Care ---
Author Author Alicia Grider M.A. Unknown Address Unknown Phone Unavailable Care Team Providers Care Inventory Coordinator Name Role Phone SERG LEONARDO M.D. Unavailable Unavailable ROSALINA COTE, JUDE [place] Unavailable Unavailable Unavailable Unavailable Functional Status Name Dates Details Functional status health issues are not documented Status: Name Dates Details Cognitive status health issues are not documented Status: Problems Name Dates Details Limb pain (729.5, M79.609) Status: Active Closed 2-part intertrochanteric fracture of proximal end of femur with routine healing, right (V54.13, S72.141D) Status: Active Closed 2-part intertrochanteric fracture of left femur with routine healing (V54.13, S72.142D) Status: Active Medications Name Dates Details Medications not documented Allergies and Adverse Reactions Name Dates Details No Known Drug Allergies (Allergy) Status: Active Procedures Procedure Dates Details Physical Therapy Date: 03-Mar-2018 Immunization Name Dates Details Immunizations not documented Social History Name Dates Details Unknown if ever smoked Vital Signs Date Test Result Details [id number] Height 60 in Status: Weight 144 lb Status: Body Mass Index Calculated 28.12 kg/m2 Status: Body Surface Area Calculated 1.62 m2 Status: Results Date Description Value Details Results not documented Plan of Care Name Dates Details Planned Observations Planned Goals not documented Planned Encounters Appointment; SERG LEONARDO M.D. On: 02-Jun-2018 11:30 Interventions Provided Labs/Procedures/Imaging* Physical Therapy; To Be Done: 03 Mar 2018 * [U] XRAY HIPS BILATERAL MIN 2 VWS AND AP PELVIS [id number]; Done: 03 Mar 2018 Instructions Name Dates Details Instructions not documented Encounters Appointment; SERG LEONARDO M.D. Encounter Diagnosis: Problem not documented On: 03-Mar-2018 14:00
--- OUTSIDE RECORDS SUMMARY | 2018-06-21 08:44 | XMS REPORT ---
Author Author Joel Le [facility] [employer] Address Unknown Phone Unavailable Care Team Providers Care Tobacco Drying Machine Operator Name Role Phone Joel Le CP Unavailable Encounters Encounter Location Date Unknown Joel Le MD September 11, 2014 Unknown Joel Le MD November 21, 2014 Unknown Joel eL MD May 25, 2015 Unknown Joel Le [...] M54.9 Active Problem Atherosclerotic heart disease of [place] coronary artery without angina pectoris I25.10 Active [...] kid w cr kid I-IV I12.9 Active Social History Social History Element Qualifiers Date Reported Tobacco Use: . Are you a: never smoker Jan 28, 2016 Use of recreational / street drugs? . Answer: No Jan 28, 2016 Do you drink alcohol? . Status: No Jan 28, 2016 Summary Purpose eClinicalWorks Submission
--- OUTSIDE RECORDS SUMMARY | 2018-06-21 08:44 | XMS REPORT ---
Author Author Joel Le Organization [employer] Address Unknown Phone Unavailable Care Team Providers Care Pipefitter Welder Name Role Phone Joel Le CP Unavailable [...] September 06, 2015 Unknown Joel Le MD Aug 08, 2016 Unknown Joel Le MD Jul 28, 2016 [...] M05.40 Active Problem Atherosclerotic heart disease of [place] coronary artery without angina pectoris I25.10 Active [...] Problem Abdominal gas pain R14.1 Active Assessment Upset stomach K30 Active Problem Hyperlipemia, mixed [...] Start Date End Date Status Dosage Lovastatin [facility] 64331395166 20 MG Active TAKE 1 TABLET BY MOUTH EVERY DAY Metoprolol Succinate ER [facility] 47764384335 50 MG Active TAKE 1 TABLET BY MOUTH EVERY DAY Tizanidine HCl [facility] [address]-51 4 mg Orally qhs prn November 22, 2014 Active 1 tablet as needed Meclizine HCl [facility] 39442365151 12.5 MG Active TAKE 1 TABLET BY MOUTH 3 TIMES A DAY NEEDED Isosorbide Mononitrate CR [facility] 55518998605 60 MG Active TAKE 1 TABLET BY MOUTH DAILY Lorazepam [facility] 71083455381 0.5 MG Active TAKE 1 TABLET BY MOUTH AT BEDTIME NEEDED Protonix [facility] [address]-25 40 MG Orally Once a day November 15, 2015 Active 1 tablet Levemir [facility] 46352335444 100 UNIT/ML Active INJECT 20 UNITS SUBCUTANEOUSLY EVERY DAY Furosemide [facility] 04600088819 20 MG Active TAKE 1 TABLET BY MOUTH EVERY MORNING OneTouch Delica Lancets 33G [facility] 35139109006 Active TEST 3 TIMES A DAY Nitrostat [facility] 72862370710 0[address] ONE TABLET UNDER THE TONGUE DAILY NEEDED Plavix [facility] 86434073891 75 MG Active TAKE 1 TABLET BY MOUTH EVERY DAY Lexapro [facility] [address]-18 10 mg Orally Once a day Jun 25, 2015 Active 1 tablet Probiotic [facility] 97368-[address]14 Orally Aug 08, 2016 Active as directed Lidocaine [facility] [address]-57 5 % Externally Three times a day September 08, 2015 Active 1 application to affected area as needed Glucophage XR [facility] 64171487110 500 MG Active TAKE 1 TABLET BY MOUTH TWICE A DAY Mupirocin [facility] 39651834321 2 % Active APPLY TWICE DAILY Gas-X [facility] [address]-81 80 MG Orally Four times a day Aug 08, 2016 Active 1 tablet after meals and at bedtime as needed Nizoral [facility] [address]-93 2 % Externally September 08, 2015 Active as directed BD Insulin Syr Ultrafine II [facility] 35973429613 31G X 516" 0.5 ML Active USE 1 DAILY WITH INSULIN Amlodipine Besylate [facility] [address]-23 5 MG Orally Once a day December 21, 2015 Active 1 tablet Gas-X [facility] [address]-96 80 MG Orally Four times a day November 15, 2015 Active 1 tablet after meals and at bedtime as needed Elocon [facility] [address]-49 0.1 % Externally Once a day September 11, 2014 Active 1 application to affected area Lisinopril [facility] 82888326715 40 MG Active TAKE 1 TABLET BY MOUTH EVERY MORNING Tramadol HCl [facility] 96831518758 50 MG Active TAKE 1 TABLET BY MOUTH TWICE A DAY WITH FOOD NEEDED. Probiotic [facility] [address]57-[address]63 Orally November 15, 2015 Active as directed D3-[address] [facility] 90621985181 00482 UNIT Active TAKE 1 CAPSULE BY MOUTH EVERY WEEK Social History Social History Element Qualifiers Date Reported Tobacco Use: . Are you a: never smoker Aug 08, 2016 Use of recreational / street drugs? . Answer: No Aug 08, 2016 Do you drink alcohol? . Status: No Aug 08, 2016 Vital Signs Date/Time: Aug 08, 2016 Weight 146 lbs Height 60 in Cardiac Monitoring Heart Rate 60 /min Blood Pressure Diastolic 80 mm Hg Blood Pressure Systolic 130 mm Hg Summary Purpose [employer] Submission
[2018-06-21 11:00] VITALS: BP 109/77
--- NOTE | 2018-06-21 13:53 | Operative Report ---
DATE OF PROCEDURE: June 21, 2018 REFERRING PHYSICIAN: Dr. Robby Romano PROCEDURE PERFORMED: Colonoscopy and polypectomy. INDICATIONS FOR COLONOSCOPY: Lower abdominal pain and positive Cologuard test. MEDICATION: Patient was done under MAC. Please see anesthesiologist's note. PROCEDURE: With the patient in the left lateral decubitus position, the flexible fiberoptic Olympus colonoscope was inserted into the rectum with ease and advanced all the way to the cecum. Mucosa overlying the cecum appeared to be within normal limits. The ileocecal valve was intubated and scope was advanced into the terminal ileum. Biopsies were obtained. The scope was then withdrawn back into the colon. It was then withdrawn slowly. Mucosa overlying the ascending and transverse appeared to be within normal limits. Diverticular disease was noted in the distal descending and the sigmoid colon. One polyp was snared from the sigmoid colon. The rectum appeared to be within normal limits. The scope was then retroflexed into the distal rectum and small internal hemorrhoids were noted, none of which was actively bleeding. The scope was then straightened out. It was subsequently withdrawn. Patient tolerated the procedure well. IMPRESSION 1. Diverticulosis. 2. Sigmoid colon polyp, snared. 3. Small internal hemorrhoids, none actively bleeding. PLAN: Follow up histology. Initiate high-fiber and low-fat diet. Initiate high-fiber supplement. There is no need for followup colonoscopy in this patient if the pathology turns out to be benign. Job#: [id number] RI cc:ROBBY ROMANO MD
== END | disposition home or self-care (01) ==
LOC: OR 08:38
PROVIDERS: ATTEND Internal Medicine Gastroenterology
DX: R19.5 Other fecal abnormalities (principal); K58.9 Irritable bowel syndrome, unspecified; K63.5 Polyp of colon; K57.30 Diverticulosis of large intestine without perforation or abscess without bleeding; K64.8 Other hemorrhoids; K25.9 Gastric ulcer, unspecified as acute or chronic, without hemorrhage or perforation; K21.9 Gastro-esophageal reflux disease without esophagitis; I25.10 Atherosclerotic heart disease of native coronary artery without angina pectoris; I10 Essential (primary) hypertension; E78.5 Hyperlipidemia, unspecified; E11.9 Type 2 diabetes mellitus without complications; M54.9 Dorsalgia, unspecified; M19.90 Unspecified osteoarthritis, unspecified site; F32.9 Major depressive disorder, single episode, unspecified; F41.9 Anxiety disorder, unspecified; Z01.812 Encounter for preprocedural laboratory examination; Z79.84 Long term (current) use of oral hypoglycemic drugs; Z79.82 Long term (current) use of aspirin; Z68.30 Body mass index [BMI] 30.0-30.9, adult; Z95.5 Presence of coronary angioplasty implant and graft
CPT/HCPCS: 36415; 45385; 85025; 88305; J1610; J1980; 45378; 45380

== ENCOUNTER → 2018-12-23 | Outpatient (CLI) | payer MEDICARE ==
[~2018-12-23] MED LIST changes: -GLUCAGON FOR INJ 1 MG VIAL ONE; -HYOSCYAMINE SULFATE 0.5 MG/ML INJ ONE; -PROPOFOL IV EMULSION 10 MG/ML 50 ML VIAL ONE
--- NOTE | 2018-12-23 18:00 | Diagnostic Imaging Report ---
EXAM: Renal Ultrasound Pelvic ultrasound (bladder) INDICATION: ^CHRONIC KIDNEY DZ STAGE III COMPARISON: None TECHNIQUE: Transverse and longitudinal grayscale and color Doppler images of the kidneys and bladder were obtained. Prevoid and postvoid images of the bladder were obtained. FINDINGS: Right Kidney: Length: 9.7 cm Appearance: Normal echogenicity. Collecting system: No hydronephrosis Stones: None Cyst/Mass: None Left Kidney: Length: 9.3 cm Appearance: Normal echogenicity. Collecting system: Mild hydronephrosis, without resolution on postvoid images. Stones: None Cyst/Mass: None Bladder: The prevoid bladder measures 6.7 x 4.8 x 7.4cm. No wall thickening or bladder mass identified. Prevoid volume estimate of 125.7 cc. The postvoid bladder measures 2.5 x 1.7 x 3.2 cm with postvoid volume estimated of 7.3 cc. IMPRESSION: Mild left hydronephrosis, persistent on postvoid images. No renal calculi or mass. Normal bladder. Signed by: Alexandrea Jones MD on 12/23/2018 5:56 PM
== END ==
LOC: US 14:18
PROVIDERS: ATTEND Internal Medicine Nephrology
DX: N18.3 Chronic kidney disease, stage 3 (moderate) (principal)
CPT/HCPCS: 76770; 76857

== ENCOUNTER → 2019-05-18 | Outpatient (CLI) | payer MEDICARE ==
--- NOTE | 2019-05-18 17:18 | Diagnostic Imaging Report ---
BILATERAL HANDS , 3 views each. History: Wrist and hand pain. Findings: The soft tissues are normal. The bones are diffusely osteopenic. There is no evidence of fracture or dislocation. There are no lytic or sclerotic lesions. There is severe bilateral diffuse distal interphalangeal joint space narrowing with subchondral sclerosis and osteophytosis. Mild DJD of the proximal interphalangeal joints and first carpometacarpal joints are also noted bilaterally. IMPRESSION: Bilateral osteoarthritis of the hands. Signed by: Nayan Polanco on 05/18/2019 5:15 PM
== END ==
LOC: RAD 15:39
PROVIDERS: ATTEND Internal Medicine
DX: G56.03 Carpal tunnel syndrome, bilateral upper limbs (principal)